=== PATIENT | female | born 1960 | race Caucasian/White ===

== ENCOUNTER 2020-01-11 19:58 | Outpatient (CLI) | payer OTHER | END 2020-01-11 19:59 | disposition EMS.NT | LOC: EMS 19:58 | PROVIDERS: ATTEND Surgery | DX: R20.8 Other disturbances of skin sensation (principal) ==

== ENCOUNTER 2020-01-13 21:45 | Inpatient (IN) | payer OTHER ==
[2020-01-13 22:10] LABS: BASOPHILS # (AUTO) 0.1 10^3/uL (0.0-0.1); BASOPHILS % (AUTO) 0.3 %; EOSINOPHILS # (AUTO) 0.1 10^3/uL (0.0-0.7); EOSINOPHILS % (AUTO) 0.6 %; HGB - HEMOGLOBIN 12.9 g/dL (12.0-16.0); LYMPHOCYTES # (AUTO) 1.2 10^3/uL (1.5-3.5); MEAN CORPUSCULAR HGB CONC 33.2 g/dL (32.0-36.0); MEAN CORPUSCULAR VOLUME 90.5 fL (81.0-99.0); MEAN PLATELET VOLUME 9.5 fL (7.9-10.8); MONOCYTES # (AUTO) 1.3 10^3/uL (0.0-1.0); MONOCYTES % (AUTO) 6.6 %; NEUTROPHILS # (AUTO) 16.5 10^3/uL (1.5-6.6); NEUTROPHILS % (AUTO) 85.1 %; PLT - PLATELET COUNT 240 10^3/uL (130-450); RED CELL DISTRIBUTION WIDTH 12.9 % (12.0-15.0); WHITE BLOOD COUNT 19.4 x10^3/uL (4.8-10.8)
[2020-01-13 22:19] LABS: GLUCOSE, URINE (UA) NEGATIVE (NEGATIVE); KETONES,URINE (UA) 40 mg/dL (NEGATIVE); LEUKOCYTE ESTERASE, URINE SMALL (NEGATIVE); NITRITE,URINE POSITIVE (NEGATIVE); OCCULT BLOOD,URINE SMALL (NEGATIVE); PROTEIN,URINE 30 mg/dL (NEGATIVE); UROBILINOGEN,URINE 0.2 (NORMAL) E.U./dL (NORMAL)
[2020-01-13 22:21] LABS: ALBUMIN 4.8 g/dL (3.2-5.5); ALBUMIN/GLOBULIN RATIO 1.5 (1.0-2.2); CALCIUM 9.4 mg/dL (8.5-10.3); CREATININE 0.6 mg/dL (0.4-1.0); TOTAL PROTEIN 8.1 g/dL (6.7-8.2)
[2020-01-13 22:26] LABS: BACTERIA,URINE Moderate /HPF (None Seen); BILIRUBIN,URINE NEGATIVE (NEGATIVE); CASTS, URINE 0-2 Hyaline Casts /LPF; CLARITY,URINE HAZY (CLEAR); ICTOTEST,URINE NEGATIVE; RBC,URINE 0-5 /HPF (0-5); SQUAMOUS EPITHELIAL CELL,UR RARE Squamous (<= Few)
--- NOTE | 2020-01-13 22:27 | ED Physician Documentation ---
History of Present Illness - Stated complaint Stated Complaint: ABD PAIN,CHILLS - Chief complaint Chief Complaint: Abd Pain - Additonal information Additional information: This is a 59-year-old female who presents with several days of lower abdominal pain and chills. She states that the pain is across her lower abdomen more in the center, radiates somewhat upwards on the bilateral sides. This is been increasing since yesterday. She has had some chills, she has not measured her temperature at home. She feels dehydrated. No diarrhea, she has been nauseated and has reduced food intake, not able to eat anything substantial today. She denies dysuria, denies abnormal vaginal discharge. Review of Systems Constitutional: reports: Chills Cardiac: denies: Chest pain / pressure Respiratory: denies: Dyspnea, Cough GI: reports: Abdominal Pain, Nausea : denies: Dysuria Skin: denies: Rash Musculoskeletal: denies: Neck pain Endocrine: denies: Polyuria Immunocompromised: denies: Immunocompromised PD PAST MEDICAL HISTORY - Past Medical History Past Medical History: No - Present Medications Home Medications: Ambulatory Orders Medication Instructions Recorded Confirmed No Known Home Medications 01/14/20 01/14/20 - Allergies Allergies/Adverse Reactions: Allergies Allergy/AdvReac Type Severity Reaction Status Date / Time No Known Drug Allergies Allergy Verified 01/13/20 21:49 - Social History Does the pt smoke?: No PD ED PE NORMAL - Vitals Vital signs reviewed: Yes - General General: Alert and oriented X 3, No acute distress - HEENT HEENT: PERRL - Neck Neck: Supple, no meningeal sign - Cardiac Cardiac: RRR, No murmur - Respiratory Respiratory: Clear bilaterally - Abdomen Abdomen: Other (Abdomen soft, there is moderate to severe tenderness in the bilateral lower quadrants and a suprapubic region. There is no upper abdominal tenderness to palpation. No guarding.) - Derm Derm: Warm and dry - Extremities Extremities: No deformity - Neuro Neuro: Alert and oriented X 3 - Psych Psych: Normal mood, Normal affect Results - Vitals Vitals: Vital Signs - 24 hr 01/14/20 01/14/20 01/14/20 06:34 08:00 08:18 Temperature 36.3 C L 37.5 C 36.3 C L Heart Rate 100 Heart Rate [ 94 Brachial] Respiratory 20 22 Rate Blood Pressure 100/61 [Left Brachial artery] Blood Pressure [Right Brachial artery] O2 Saturation 92 100 01/14/20 01/14/20 01/14/20 10:15 12:33 13:19 Temperature 37.7 C H 37.0 C 37.4 C Heart Rate Heart Rate [ 96 103 H 95 Brachial] Respiratory 18 20 20 Rate Blood Pressure 104/62 111/68 105/64 [Left Brachial artery] Blood Pressure [Right Brachial artery] O2 Saturation 94 92 95 01/14/20 01/14/20 14:34 15:56 Temperature 37.7 C H 37.4 C Heart Rate Heart Rate [ 97 88 Brachial] Respiratory 18 20 Rate Blood Pressure 101/59 L [Left Brachial artery] Blood Pressure 95/58 L [Right Brachial artery] O2 Saturation 92 93 Oxygen O2 Source Room air - Labs Labs: Microbiology 01/13/20 22:09 Urine Culture - Preliminary Urine,Clean Catch CULTURE IN PROGRESS. RESULTS TO FOLLOW. Laboratory Tests 01/13/20 01/13/20 01/13/20 22:02 22:02 22:09 WBC 19.4 H RBC 4.30 Hgb 12.9 Hct 38.9 MCV 90.5 MCH 30.0 MCHC 33.2 RDW 12.9 Plt Count 240 MPV 9.5 Neut # (Auto) 16.5 H Lymph # (Auto) 1.2 L [place] # (Auto) 1.3 H Eos # (Auto) 0.1 Baso # (Auto) 0.1 Absolute Nucleated RBC 0.00 Total Counted Band Neuts % (Manual) Abnorm Lymph % (Manual) Nucleated RBC % 0.0 Neutrophils # (Manual) Lymphocytes # (Manual) Monocytes # (Manual) Eosinophils # (Manual) Basophils # (Manual) Differential Comment Platelet Estimate RBC Morph Micro Appear PT INR Sodium 134 L Potassium 3.3 L Chloride 98 L Carbon Dioxide 24 Anion Gap 12.0 BUN 15 Creatinine 0.6 Estimated GFR (MDRD) 102 Glucose 127 H POC Whole Bld Glucose Glycated Hemoglobin Estim Average Glucose Lactic Acid Calcium 9.4 Total Bilirubin 2.0 H AST 18 ALT 21 Alkaline Phosphatase 57 Total Protein 8.1 Albumin 4.8 Globulin 3.3 Albumin/Globulin Ratio 1.5 Lipase 21 L CA 125 Antigen Urine Color YELLOW Urine Clarity HAZY Urine pH 6.0 Ur Specific [place] 1.025 Urine Protein 30 H Urine Glucose (UA) NEGATIVE Urine Ketones 40 H Urine Occult Blood SMALL H Urine Nitrite POSITIVE H Urine Bilirubin NEGATIVE Urine Urobilinogen 0.2 (NORMAL) Ur Leukocyte Esterase SMALL H Urine RBC 0-5 Urine WBC 11-25 H Ur Squamous Epith Cells RARE Squamous Urine Bacteria Moderate H Urine Casts 0-2 Hyaline Casts Ur Microscopic Review INDICATED Urine Culture Comments INDICATED Blood Type Recheck 01/13/20 01/14/20 01/14/20 23:04 04:25 04:25 WBC 11.1 H RBC 3.83 L Hgb 11.3 L Hct 35.1 L MCV 91.6 MCH 29.5 MCHC 32.2 RDW 13.2 Plt Count 190 MPV 10.0 Neut # (Auto) Not Reportable Lymph # (Auto) Not Reportable [place] # (Auto) Not Reportable Eos # (Auto) Not Reportable Baso # (Auto) Not Reportable Absolute Nucleated RBC Not Reportable Total Counted 100 Band Neuts % (Manual) 7 Abnorm Lymph % (Manual) 0 Nucleated RBC % Not Reportable Neutrophils # (Manual) 10.1 H Lymphocytes # (Manual) 0.6 L Monocytes # (Manual) 0.4 Eosinophils # (Manual) 0.0 Basophils # (Manual) 0.0 Differential Comment MANUAL DIFFERENTIAL Platelet Estimate NORMAL (130-450,000) RBC Morph Micro Appear NORMAL APPEARANCE PT INR Sodium 135 Potassium 3.3 L Chloride 104 Carbon Dioxide 23 Anion Gap 8.0 BUN 11 Creatinine 0.5 Estimated GFR (MDRD) 126 Glucose 120 H POC Whole Bld Glucose Glycated Hemoglobin Estim Average Glucose Lactic Acid 0.6 Calcium 8.2 L Total Bilirubin AST ALT Alkaline Phosphatase Total Protein Albumin Globulin Albumin/Globulin Ratio Lipase CA 125 Antigen Urine Color Urine Clarity Urine pH Ur Specific [place] Urine Protein Urine Glucose (UA) Urine Ketones Urine Occult Blood Urine Nitrite Urine Bilirubin Urine Urobilinogen Ur Leukocyte Esterase Urine RBC Urine WBC Ur Squamous Epith Cells Urine Bacteria Urine Casts Ur Microscopic Review Urine Culture Comments Blood Type Recheck 01/14/20 01/14/20 01/14/20 04:25 04:25 08:30 WBC RBC Hgb Hct MCV MCH MCHC RDW Plt Count MPV Neut # (Auto) Lymph # (Auto) [place] # (Auto) Eos # (Auto) Baso # (Auto) Absolute Nucleated RBC Total Counted Band Neuts % (Manual) Abnorm Lymph % (Manual) Nucleated RBC % Neutrophils # (Manual) Lymphocytes # (Manual) Monocytes # (Manual) Eosinophils # (Manual) Basophils # (Manual) Differential Comment Platelet Estimate RBC Morph Micro Appear PT INR Sodium Potassium Chloride Carbon Dioxide Anion Gap BUN Creatinine Estimated GFR (MDRD) Glucose POC Whole Bld Glucose Glycated Hemoglobin 5.5 Estim Average Glucose 111 H Lactic Acid Calcium Total Bilirubin AST ALT Alkaline Phosphatase Total Protein Albumin Globulin Albumin/Globulin Ratio Lipase CA 125 Antigen 19.3 Urine Color Urine Clarity Urine pH Ur Specific [place] Urine Protein Urine Glucose (UA) Urine Ketones Urine Occult Blood Urine Nitrite Urine Bilirubin Urine Urobilinogen Ur Leukocyte Esterase Urine RBC Urine WBC Ur Squamous Epith Cells Urine Bacteria Urine Casts Ur Microscopic Review Urine Culture Comments Blood Type Recheck A POSITIVE 01/14/20 01/14/20 01/14/20 08:30 11:10 17:45 WBC RBC Hgb Hct MCV MCH MCHC RDW Plt Count MPV Neut # (Auto) Lymph # (Auto) [place] # (Auto) Eos # (Auto) Baso # (Auto) Absolute Nucleated RBC Total Counted Band Neuts % (Manual) Abnorm Lymph % (Manual) Nucleated RBC % Neutrophils # (Manual) Lymphocytes # (Manual) Monocytes # (Manual) Eosinophils # (Manual) Basophils # (Manual) Differential Comment Platelet Estimate RBC Morph Micro Appear PT 19.1 H INR 1.7 H Sodium Potassium Chloride Carbon Dioxide Anion Gap BUN Creatinine Estimated GFR (MDRD) Glucose POC Whole Bld Glucose 102 H Glycated Hemoglobin Estim Average Glucose Lactic Acid 0.8 Calcium Total Bilirubin AST ALT Alkaline Phosphatase Total Protein Albumin Globulin Albumin/Globulin Ratio Lipase CA 125 Antigen Urine Color Urine Clarity Urine pH Ur Specific [place] Urine Protein Urine Glucose (UA) Urine Ketones Urine Occult Blood Urine Nitrite Urine Bilirubin Urine Urobilinogen Ur Leukocyte Esterase Urine RBC Urine WBC Ur Squamous Epith Cells Urine Bacteria Urine Casts Ur Microscopic Review Urine Culture Comments Blood Type Recheck - Rads (name of study) CT abd/pelvis Radiology: Other (Severe diverticulitis, without free air or abscess. There is adjacent small bowel with likely ileus. 7 cm right ovarian cyst, warrants follow-up ultrasound.) PD MEDICAL DECISION MAKING - ED course Complexity details: considered differential (Cystitis, pyelonephritis, diverticulitis, perforation, enteritis, gastroenteritis.) ED course: On arrival patient is tachycardic, afebrile, she is focally tender in her lower abdomen. Labs reveal leukocytosis of 19.4. Her urine does show signs of infection, however given her greater than expected tenderness, which is more lateral than expected for simple cystitis, and elevated white count, CT scan was obtained that showed severe diverticulitis without abscess or perforation. She required multiple doses of pain medications, antiemetics. She was also given IV fluids. She initially was started on ceftriaxone when she was found to have signs of a urinary tract infection, this was broadened to Zosyn once we found that she also had diverticulitis. On repeat examination patient's vital signs have improved with her heart rate normalizing on my repeat exam, blood pressure stable, pt remains afebrile. Her lactate is normal, there are no signs of septic shock. Given her pain, her tenderness on exam, and her findings of severe diverticulitis and possible pyelonephritis, she was admitted to the hospital for observation, antibiotics, and further management. Dr. Tovar admitting. I updated patient on the plan of care and she is in agreement. Departure - Departure Disposition: ED Place in Observation Clinical Impression: Diverticulitis Urinary tract infection Qualifiers: Urinary tract infection type: acute cystitis Hematuria presence: without hematuria Qualified Code(s): N30.00 - Acute cystitis without hematuria Condition: Stable Discharge Date/Time: 01/14/20 01:19
[2020-01-13] MEDS ORDERED: cefTRIAXone 1 GM in SODIUM CHLORIDE 0.9% MINIBAG 100 ML IV STA (22:38)
[2020-01-13] MEDS ORDERED: MORPHINE 2 MG/ML CARPUJECT IVP STA (22:49)
[2020-01-13] MEDS ORDERED: LACTATED RINGERS 1,000 ML IV STA (22:49)
[2020-01-13] MEDS ORDERED: ONDANSETRON 4 MG/2 ML VIAL IVP STA (22:50)
[2020-01-13] MEDS ORDERED: IOVERSOL 320 100 ML VIAL IVP ONE (23:30)
[2020-01-13] MEDS: IOVERSOL 320 100 ML VIAL IVP ONE (23:30)
--- NOTE | 2020-01-13 23:51 | CT Report ---
Reason: Lower abdominal pain, fever Procedure Date: 01/13/2020 Accession Number: [id number] / [id number] Procedure: CT - Abdomen/Pelvis W CPT Code: Final Report FULL RESULT: EXAM: CT ABDOMEN AND PELVIS EXAM DATE: 01/13/2020 11:31 PM. CLINICAL HISTORY: Lower abdominal pain, fever. COMPARISONS: None. TECHNIQUE: Routine helical CT imaging was performed through the abdomen and pelvis. IV contrast: 100 cc OPTIRAY 320. Enteric contrast: No. Reconstructions: Coronal and sagittal. In accordance with CT protocol optimization, one or more of the following dose reduction techniques were utilized for this exam: automated exposure control, adjustment of mA and/or KV based on patient size, or use of iterative reconstructive technique. FINDINGS: ABDOMEN: Lung Bases: Incompletely included lower lungs demonstrate scattered atelectasis. Heart size is within normal limits. No basilar effusions. Liver: Diffuse steatosis. Spleen: Unremarkable. Pancreas: Unremarkable. Gallbladder/Bile Ducts: Gallbladder is unremarkable. Biliary tree is normal caliber. Adrenal Glands: Unremarkable. Kidneys: No mass, calculi, or hydronephrosis. Peritoneum/Mesentery/Bowel: No free fluid, free air, or collection. Severe sigmoid diverticulitis is present. There is inflammation of the adjacent small bowel. Mid to lower small bowel is mildly dilated with air-fluid levels. The appendix is within normal limits. Lymph nodes: No mesenteric, periportal, or retroperitoneal lymphadenopathy. Vasculature: Abdominal aorta is nonaneurysmal. Portal vein is patent. Hepatic veins are patent. PELVIS: The bladder is unremarkable for the degree of distention. 7 cm right ovarian cyst measuring simple fluid density. No pelvic lymphadenopathy. Bones: No suspicious osseous lesions. IMPRESSION: Severe sigmoid diverticulitis. No free air. No abscess. The adjacent small bowel is also severely inflamed with associated likely ileus. Follow-up imaging once clinical symptomatology resolves is recommended to ensure complete resolution. 7 cm right ovarian postmenopausal cyst. Follow-up ultrasound is recommended beginning in 3 months, as neoplasm cannot be excluded. Diffuse hepatic steatosis. RADIA
[2020-01-14] MEDS ORDERED: LACTATED RINGERS 1,000 ML IV ONE (00:13)
[2020-01-14] MEDS ORDERED: MORPHINE 2 MG/ML CARPUJECT IVP STA (00:20)
[2020-01-14] MEDS ORDERED: PIPERACILLIN/TAZOBACTAM 4.5 GM in SODIUM CHLORIDE 0.9% MINIBAG 100 ML IV STA (00:20)
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
[2020-01-14] MEDS ORDERED: POTASSIUM CHLORIDE 20 MEQ TABLET PO STA (00:39)
[2020-01-14] MEDS: SODIUM CHLORIDE 0.9% 1,000 ML IV SCH ×2 (01:44→11:24)
[2020-01-14] MEDS: SODIUM CHLORIDE FLUSH 0.9% 10 ML SYRINGE IVP SCH ×3 (01:44→16:57)
[2020-01-14] MEDS: oxyCODONE 5 MG TABLET PO PRN ×3 (01:44→13:29)
[2020-01-14] MEDS: MORPHINE 2 MG/ML CARPUJECT IVP PRN ×5 (02:38→18:04)
[2020-01-14] MEDS: ACETAMINOPHEN 325 MG TABLET PO PRN ×3 (04:56→14:39)
[2020-01-14 05:11] LABS: BASOPHILS % (AUTO) 0.2 %; HGB - HEMOGLOBIN 11.3 g/dL (12.0-16.0); MEAN CORPUSCULAR HEMOGLOBIN 29.5 pg (27.0-31.0); MEAN CORPUSCULAR HGB CONC 32.2 g/dL (32.0-36.0); MEAN CORPUSCULAR VOLUME 91.6 fL (81.0-99.0); MONOCYTES % (AUTO) 5.1 %; NEUTROPHILS % (AUTO) 88.2 %; PLT - PLATELET COUNT 190 10^3/uL (130-450); RED BLOOD COUNT 3.83 10^6/uL (4.20-5.40); RED CELL DISTRIBUTION WIDTH 13.2 % (12.0-15.0); WHITE BLOOD COUNT 11.1 x10^3/uL (4.8-10.8)
[2020-01-14 05:14] LABS: CALCIUM 8.2 mg/dL (8.5-10.3); CREATININE 0.5 mg/dL (0.4-1.0)
[2020-01-14 05:23] LABS: ABNORMAL LYMPHS % (MANUAL) 0 %
[2020-01-14] MEDS: PIPERACILLIN/TAZOBACTAM 3.375 GM in SODIUM CHLORIDE 0.9% MINIBAG 100 ML IV SCH ×3 (05:32→17:55)
[2020-01-14 05:41] LABS: HB2 TOTAL 11.9 g/dL; HEMOGLOBIN A1C 0.44 g/dL; HEMOGLOBIN A1C % 5.5 % (4.6-6.2)
[2020-01-14 06:02] LABS: BAND NEUTROPHILS % (MANUAL) 7 %; DIFFERENTIAL COMMENT MANUAL DIFFERENTIAL; LYMPHOCYTES # (MANUAL) 0.6 10^3/uL (1.5-3.5); LYMPHOCYTES % (MANUAL) 5 %; MONOCYTES # (MANUAL) 0.4 10^3/uL (0.0-1.0); PLATELET ESTIMATE, MANUAL NORMAL (130-450,000) (NORMAL); RBC MORPHOLOGY (MULTIPLE) NORMAL APPEARANCE (NORMAL)
[2020-01-14] MEDS ORDERED: POTASSIUM CHLORIDE 20 MEQ TABLET PO SCH (08:03)
--- NOTE | 2020-01-14 12:04 | PHARMACY PROGRESS NOTE ---
- Best Possible Medication History Admit Date and Time: 01/14/20 0019 Processed by: Pharmacy Medication History completed: Yes Patient Interview: Pt interview ONLY source As the person ultimately responsible for medication therapy, providers are able to order a medication from an existing home medication list in [facility] via the "Reconcile Routine" prior to Confirmation of that medication by support team member. Such practice is discouraged except when the physician, in their clinical judgment, deems that a medical need exists for a medication without regard to previous use.
[2020-01-14] MEDS: ONDANSETRON 4 MG/2 ML VIAL IVP PRN (13:29)
[2020-01-14] MEDS ORDERED: IOVERSOL 320 100 ML VIAL IVP ONE (15:51)
[2020-01-14] MEDS: IOVERSOL 320 100 ML VIAL IVP ONE (16:46)
--- NOTE | 2020-01-14 17:39 | CT Report ---
Reason: worsen abd pain from severe diverticulitis,perfor? Procedure Date: 01/14/2020 Accession Number: [id number] / [id number] Procedure: CT - Abdomen/Pelvis W CPT Code: Final Report FULL RESULT: EXAM: CT ABDOMEN AND PELVIS EXAM DATE: 01/14/2020 04:18 PM. CLINICAL HISTORY: Worsening abdominal pain. COMPARISONS: ABDOMEN/PELVIS W/ 01/13/2020 11:16 PM. TECHNIQUE: Routine helical CT imaging was performed through the abdomen and pelvis. IV contrast: 100 mL Optiray 320. Enteric contrast: No. Reconstructions: Coronal and sagittal. In accordance with CT protocol optimization, one or more of the following dose reduction techniques were utilized for this exam: automated exposure control, adjustment of mA and/or KV based on patient size, or use of iterative reconstructive technique. FINDINGS: Lung Bases: Clear. Liver: Diffuse low attenuation of the hepatic parenchyma with respect to the spleen, indicating steatosis. No focal hepatic lesion. Gallbladder/Bile Ducts: Unremarkable. No visualized stones or biliary ductal dilatation. Spleen: Normal. Pancreas: Normal. Adrenal Glands: Normal. Kidneys and Ureters: Stable 0.5 cm circumscribed hypoattenuating focus in the medial right upper pole cortex likely represents a cyst (40). No stones, hydronephrosis, or hydroureter. Peritoneal Cavity/Bowel: Ongoing focal thickening of the proximal/mid sigmoid colon wall with adjacent inflammatory fat stranding centered around an inflamed diverticulum (03/12), compatible with acute diverticulitis. New fluid and gas collection adjacent to the inflamed diverticulum measuring approximately 4.2 x 2.0 x 2.1 cm (72). Multiple dilated fluid-filled loops of small bowel with transition to decompressed bowel at thick-walled loops surrounding the developing abscess in the anterior pelvis (03/08). Scattered small volume free fluid in the lower abdominal small bowel mesentery and pelvis. The appendix is normal. Pelvic Organs: 7.7 x 6.4 x 6.8 cm simple appearing right adnexal cyst (, 5/47). Multiple myomata at the uterine fundus, the largest a posterior subserosal myoma measuring 3.3 x 2.0 x 3.2 cm (, 5). The bladder is partially decompressed. Vasculature: Trace atherosclerotic calcification in the proximal right common iliac artery. Bones: Mild left convex curvature centered at L2-L3. No acute bony abnormality. Other: None. IMPRESSION: 1. Acute mid sigmoid colon diverticulitis with microperforation versus early perforation. Small fluid and gas collection adjacent to the inflamed mid sigmoid colon diverticulum and surrounded by small bowel loops in the anterior pelvis, compatible with developing abscess. 2. Small bowel obstruction with transition point at thick-walled loops of bowel surrounding the developing abscess in the anterior pelvis. 3. 7.7 cm simple appearing right adnexal cyst. Follow-up ultrasound recommended in 6-12 months per ACR white paper. [facility]IA The critical result notification system was initiated by Dr. Caro Ochoa at 05:26 PM on 01/14/2020. The above critical result findings were discussed with Li by Dr. Caro Ochoa at 05:34 PM on 01/14/2020.
[2020-01-14 18:01] LABS: INR 1.7 (0.8-1.2); PT - PROTHROMBIN TIME 19.1 secs (9.9-12.6)
[2020-01-14] MEDS: SODIUM CHLORIDE FLUSH 0.9% 10 ML SYRINGE IVP PRN ×2 (18:05→18:29)
--- NOTE | 2020-01-14 18:06 | PROVIDER PROGRESS NOTE ---
Hospitalist Cross-cover Note - Cross-Cover Note Cross-Cover Note: pt report her abdominal is worsening, plus immediately vomit after PO fluid. In examination, pt present mild tenderness and rebound pain. Stat CT of abdomen was ordered. Radiologist called me new CT reveals microperforation versus early perforation, developing abscess, small bowel obstruction with transition point at thick-walled loops of bowel surrounding the developing abscess in the anterior pelvis. I called surgeon Dr. Thurston immediately. Dr. Thurston come to assess pt. pt did not eat her clear liquid diet. I order EKG and ECHO as well, order PT/INR, change to NPO. pt denies cardiac hx, she report she had surgery recently. she passed the cardiac evaluation for her surgery also. I reported all these informations to Dr. Thurston. Dr. Thurston asked to add Flagyl for pt, so I added.
[2020-01-14] MEDS: PROCHLORPERAZINE 10 MG/2 ML VIAL IVP PRN (18:29)
[2020-01-14] MEDS: metroNIDAZOLE 500 MG/100 ML 500 MG/100 ML BAG IV SCH (18:52)
[2020-01-14] MEDS ORDERED: CIPROFLOXACIN 400 MG/200 ML 200 ML IV SCH (20:00)
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
[2020-01-14] MEDS: levoFLOXacin 750 MG/150 ML 750 MG/150 ML BAG IV SCH (20:13)
[2020-01-14] MEDS: HYDROmorphone PCA 20MG/100ML IV PRN (21:11)
[2020-01-15] MEDS: SODIUM CHLORIDE 0.9% 1,000 ML IV SCH ×2 (01:48→06:59)
[2020-01-15] MEDS: SODIUM CHLORIDE FLUSH 0.9% 10 ML SYRINGE IVP SCH ×3 (01:50→17:14)
[2020-01-15] MEDS: PROCHLORPERAZINE 10 MG/2 ML VIAL IVP PRN (04:06)
[2020-01-15] MEDS: metroNIDAZOLE 500 MG/100 ML 500 MG/100 ML BAG IV SCH ×3 (04:13→21:47)
[2020-01-15 05:24] LABS: BASOPHILS % (AUTO) 0.2 %; EOSINOPHILS % (AUTO) 0.2 %; HGB - HEMOGLOBIN 9.7 g/dL (12.0-16.0); LYMPHOCYTES # (AUTO) 0.8 10^3/uL (1.5-3.5); LYMPHOCYTES % (AUTO) 8.7 %; MEAN CORPUSCULAR HEMOGLOBIN 28.8 pg (27.0-31.0); MEAN CORPUSCULAR HGB CONC 31.4 g/dL (32.0-36.0); MEAN CORPUSCULAR VOLUME 91.7 fL (81.0-99.0); MONOCYTES # (AUTO) 0.8 10^3/uL (0.0-1.0); MONOCYTES % (AUTO) 8.4 %; NEUTROPHILS # (AUTO) 7.7 10^3/uL (1.5-6.6); PLT - PLATELET COUNT 188 10^3/uL (130-450); RED BLOOD COUNT 3.37 10^6/uL (4.20-5.40); RED CELL DISTRIBUTION WIDTH 13.1 % (12.0-15.0); WHITE BLOOD COUNT 9.4 x10^3/uL (4.8-10.8)
[2020-01-15 05:42] LABS: ALBUMIN/GLOBULIN RATIO 1.1 (1.0-2.2); CALCIUM 8.4 mg/dL (8.5-10.3); CREATININE 0.5 mg/dL (0.4-1.0); MAGNESIUM 1.9 mg/dL (1.7-2.8); TOTAL PROTEIN 5.8 g/dL (6.7-8.2)
[2020-01-15] MEDS: DEXTROSE 5%-0.9% NACL 1,000 ML IV SCH ×2 (08:56→19:48)
[2020-01-15] MEDS ORDERED: BISACODYL 10 MG SUPP PR PRN (09:00)
[2020-01-15] MEDS ORDERED: LACTOBACILLUS RHAMNOSUS GG CAPSULE PO SCH (09:00)
--- NOTE | 2020-01-15 10:32 | PROVIDER PROGRESS NOTE ---
Subjective - Prog Note Date Prog Note Date: 01/15/20 Prog Note Time: 07:30 - Subjective Pt reports feeling: Improved (Patient reports her pain is much better undercontrol with the WIRE COINER and she feels better than she did last pm, no gas, some bleching able to ambulated without issues) Objective - Vital Signs/Intake & Output Vital Signs: Vital Signs x48h Temp Pulse Resp BP Pulse Ox 01/15/20 08:15 36.4 C L 92 20 110/65 91 L 01/15/20 06:56 16 01/15/20 04:12 37.1 C 82 18 103/51 L 98 01/15/20 04:00 16 Intake & Output: Intake & Output 01/12/20 01/13/20 01/14/20 01/15/20 23:59 23:59 23:59 23:59 Intake Total 100 5828.334 1034.666 Output Total 950 250 Balance 100 4878.334 784.666 - Objective General Appearance: positive: No acute distress Eyes Bilateral: positive: Normal inspection Respiratory: positive: No respiratory distress, Breath sounds nml Cardiovascular: positive: Regular rate & rhythm Abdomen: positive: Tenderness (LLQ tenderness is slightly improved on exam, no peritoneal signs no R/G/R BS are minimal) Extremities: positive: Non-tender, Full ROM, Nml appearance Neurologic/Psychiatric: positive: Oriented x3 - Lab Results Fish Bones: 01/15/20 04:50 01/15/20 04:50 Other Labs: Lab Results x24hrs 01/15/20 01/15/20 01/14/20 Range/Units 04:50 04:50 21:19 WBC 9.4 (4.8-10.8) x10^3/uL RBC 3.37 L (4.20-5.40) 10^6/uL Hgb 9.7 L (12.0-16.0) g/dL Hct 30.9 L (37.0-47.0) % MCV 91.7 (81.0-99.0) fL MCH 28.8 (27.0-31.0) pg MCHC 31.4 L (32.0-36.0) g/dL RDW 13.1 (12.0-15.0) % Plt Count 188 (130-450) 10^3/uL MPV 10.0 (7.9-10.8) fL Neut # (Auto) 7.7 H (1.5-6.6) 10^3/uL Lymph # (Auto) 0.8 L (1.5-3.5) 10^3/uL Antelope # (Auto) 0.8 (0.0-1.0) 10^3/uL Eos # (Auto) 0.0 (0.0-0.7) 10^3/uL Baso # (Auto) 0.0 (0.0-0.1) 10^3/uL Absolute Nucleated RBC 0.00 x10^3/uL Nucleated RBC % 0.0 /100WBC PT (9.9-12.6) secs INR (0.8-1.2) Sodium 133 L (135-145) mmol/L Potassium 3.8 (3.5-5.0) mmol/L Chloride 104 (101-111) mmol/L Carbon Dioxide 21 (21-32) mmol/L Anion Gap 8.0 (6-13) BUN 16 (6-20) mg/dL Creatinine 0.5 (0.4-1.0) mg/dL Estimated GFR (MDRD) 126 (>89) Glucose 94 (70-100) mg/dL POC Whole Bld Glucose (70 - 100) mg/dL Calcium 8.4 L (8.5-10.3) mg/dL Magnesium 1.9 (1.7-2.8) mg/dL Total Bilirubin 1.0 (0.2-1.0) mg/dL AST 11 (10-42) IU/L ALT 14 (10-60) IU/L Alkaline Phosphatase 43 (42-121) IU/L Total Protein 5.8 L (6.7-8.2) g/dL Albumin 3.0 L (3.2-5.5) g/dL Globulin 2.8 (2.1-4.2) g/dL Albumin/Globulin Ratio 1.1 (1.0-2.2) Blood Type A POSITIVE Blood Type Recheck Antibody Screen NEGATIVE 01/14/20 01/14/20 01/14/20 Range/Units 17:45 11:10 04:25 WBC (4.8-10.8) x10^3/uL RBC (4.20-5.40) 10^6/uL Hgb (12.0-16.0) g/dL Hct (37.0-47.0) % MCV (81.0-99.0) fL MCH (27.0-31.0) pg MCHC (32.0-36.0) g/dL RDW (12.0-15.0) % Plt Count (130-450) 10^3/uL MPV (7.9-10.8) fL Neut # (Auto) (1.5-6.6) 10^3/uL Lymph # (Auto) (1.5-3.5) 10^3/uL Antelope # (Auto) (0.0-1.0) 10^3/uL Eos # (Auto) (0.0-0.7) 10^3/uL Baso # (Auto) (0.0-0.1) 10^3/uL Absolute Nucleated RBC x10^3/uL Nucleated RBC % /100WBC PT 19.1 H (9.9-12.6) secs INR 1.7 H (0.8-1.2) Sodium (135-145) mmol/L Potassium (3.5-5.0) mmol/L Chloride (101-111) mmol/L Carbon Dioxide (21-32) mmol/L Anion Gap (6-13) BUN (6-20) mg/dL Creatinine (0.4-1.0) mg/dL Estimated GFR (MDRD) (>89) Glucose (70-100) mg/dL POC Whole Bld Glucose 102 H (70 - 100) mg/dL Calcium (8.5-10.3) mg/dL Magnesium (1.7-2.8) mg/dL Total Bilirubin (0.2-1.0) mg/dL AST (10-42) IU/L ALT (10-60) IU/L Alkaline Phosphatase (42-121) IU/L Total Protein (6.7-8.2) g/dL Albumin (3.2-5.5) g/dL Globulin (2.1-4.2) g/dL Albumin/Globulin Ratio (1.0-2.2) Blood Type Blood Type Recheck A POSITIVE Antibody Screen Sepsis Event Note (H) - Sepsis Criteria Sepsis Criteria: Recorded Heart Rate greater than 90 bpm, WBC count greater than 12,000 or less than 4000 Assessment/Plan - Problem List (1) Diverticulitis Impression: Recommend to continue current plan of care with IV abx, strict NPO, and bowel rest. Wait a minimum of 48 hours prior to considering starting any oral intake. She understands that we are progressing successfully so far but that could change at any time and we will be monitoring for abscess development as well. She was encouraged to get out of bed several times today and her questions were answered.
--- NOTE | 2020-01-15 14:17 | PROVIDER PROGRESS NOTE ---
Subjective - Prog Note Date Prog Note Date: 01/15/20 - Subjective Pt reports feeling: Improved Subjective: pt report her abdominal pain is much better controlled. she denies fever, chill, SOB, chest pain. she report she passed gas and a small bowel movement. Current Medications - Current Medications Current Medications: Active Medications Acetaminophen (Tylenol) 650 mg PO Q4HR PRN PRN Reason: Pain 1 to 4 Last Admin: 01/14/20 14:39 Dose: 650 mg Bisacodyl (Dulcolax Supp) 10 mg ID ONCE PRN PRN Reason: Bowel Protocol Stop: 01/21/20 08:59 Enoxaparin Sodium (Lovenox) 40 mg SUBQ DAILY JULIA Hydromorphone HCl (Dilaudid Mohs Surgeon/General Dermatologist 20mg/100ml) 0 mg IV PRN PRN; Protocol PRN Reason: PAIN Last Admin: 01/14/20 21:11 Dose: 0.2 mg Metronidazole (Flagyl 500 Mg/100 Ml) 500 mg in 100 mls @ 100 mls/hr IV Q8H [facility] Last Infusion: 01/15/20 05:13 Dose: Infused Levofloxacin (Levaquin 750 Mg/150 Ml) 750 mg in 150 mls @ 100 mls/hr IV Q24H [facility] Last Infusion: 01/14/20 21:43 Dose: Infused Dextrose/Sodium Chloride (D5ns) 1,000 mls @ 100 mls/hr IV .Q10H [facility] Last Admin: 01/15/20 08:56 Dose: 100 mls/hr Lactobacillus Rhamnosus (Culturelle) 1 cap PO DAILY [facility] Last Admin: 01/15/20 07:50 Dose: Not Given Ondansetron HCl (Zofran Inj) 4 mg IVP Q6HR PRN PRN Reason: Nausea / Vomiting Last Admin: 01/14/20 13:29 Dose: 4 mg Ondansetron HCl (Zofran Odt) 4 mg TL Q6HR PRN PRN Reason: Nausea / Vomiting Oxycodone HCl (Roxicodone) 5 mg PO Q4HR PRN PRN Reason: Pain 5 to 7 Last Admin: 01/14/20 13:29 Dose: 5 mg Prochlorperazine Edisylate (Compazine Inj) 10 mg IVP Q6HR PRN PRN Reason: Nausea / Vomiting Last Admin: 01/15/20 04:06 Dose: 10 mg Sodium Chloride (Normal Saline Flush 0.9%) 10 ml IVP PRN PRN PRN Reason: NEEDED PER PROVIDER ORDERS Last Admin: 01/14/20 18:29 Dose: 10 ml Sodium Chloride (Normal Saline Flush 0.9%) 10 ml IVP 0100,0900,1700 JULIA Last Admin: 01/15/20 08:39 Dose: Not Given No Known Home Medications 01/14/20 Objective - Vital Signs/Intake & Output Vital Signs: Vital Signs x48h Temp Pulse Resp BP Pulse Ox 01/15/20 13:47 36.5 C 88 18 110/57 L 93 01/15/20 08:15 36.4 C L 92 20 110/65 91 L 01/15/20 06:56 16 Intake & Output: Intake & Output 01/12/20 01/13/20 01/14/20 01/15/20 23:59 23:59 23:59 23:59 Intake Total 100 5828.334 1034.666 Output Total 950 250 Balance 100 4878.334 784.666 - Objective General Appearance: positive: No acute distress, Alert. negative: Lethargic Eyes Bilateral: positive: Normal inspection, PERRL, No lid inflammation ENT: positive: ENT inspection nml, Pharynx nml, No signs of dehydration. negative: Purulent nasal drainage Neck: positive: Nml inspection, Thyroid nml, No JVD, Trachea midline. negative: Thyromegaly, Lymphadenopathy (R), Lymphadenopathy (L), Stiff neck, Tracheal deviation Respiratory: positive: Chest non-tender, No respiratory distress, Breath sounds nml. negative: Wheezes, Rales, Rhonchi Cardiovascular: positive: Regular rate & rhythm, No murmur, No gallop. negative: Irregularly irregular, Extrasystoles, Tachycardia, Bradycardia, JVD present, Systolic murmur, Diastolic murmur Peripheral Pulses: 2+ Radial (R), 2+ Radial (L), 2+ Dorsalis pedis (R), 2+ Dorsalis pedis (L) Abdomen: positive: Non-tender, No organomegaly, Nml bowel sounds, No distention. negative: Tenderness, Guarding, Rebound Back: positive: Nml inspection. negative: CVA tenderness (R), CVA tenderness (L) Skin: positive: Color nml, No rash, Warm, Dry. negative: Cyanosis, Diaphoresis, Pallor Extremities: positive: Non-tender, Full ROM, Nml appearance. negative: Calf tenderness, Adolfo's sign/cords Neurologic/Psychiatric: positive: Oriented x3, Motor nml, Sensation nml, Mood/affect nml. negative: Weakness, Sensory loss, Facial droop, Slurred/abnml speech, Depressed mood/affect - Lab Results Fish Bones: 01/15/20 04:50 01/15/20 04:50 Other Labs: Lab Results x24hrs 01/15/20 01/15/20 01/14/20 Range/Units 04:50 04:50 21:19 WBC 9.4 (4.8-10.8) x10^3/uL RBC 3.37 L (4.20-5.40) 10^6/uL Hgb 9.7 L (12.0-16.0) g/dL Hct 30.9 L (37.0-47.0) % MCV 91.7 (81.0-99.0) fL MCH 28.8 (27.0-31.0) pg MCHC 31.4 L (32.0-36.0) g/dL RDW 13.1 (12.0-15.0) % Plt Count 188 (130-450) 10^3/uL MPV 10.0 (7.9-10.8) fL Neut # (Auto) 7.7 H (1.5-6.6) 10^3/uL Lymph # (Auto) 0.8 L (1.5-3.5) 10^3/uL Gage # (Auto) 0.8 (0.0-1.0) 10^3/uL Eos # (Auto) 0.0 (0.0-0.7) 10^3/uL Baso # (Auto) 0.0 (0.0-0.1) 10^3/uL Absolute Nucleated RBC 0.00 x10^3/uL Nucleated RBC % 0.0 /100WBC PT (9.9-12.6) secs INR (0.8-1.2) Sodium 133 L (135-145) mmol/L Potassium 3.8 (3.5-5.0) mmol/L Chloride 104 (101-111) mmol/L Carbon Dioxide 21 (21-32) mmol/L Anion Gap 8.0 (6-13) BUN 16 (6-20) mg/dL Creatinine 0.5 (0.4-1.0) mg/dL Estimated GFR (MDRD) 126 (>89) Glucose 94 (70-100) mg/dL Calcium 8.4 L (8.5-10.3) mg/dL Magnesium 1.9 (1.7-2.8) mg/dL Total Bilirubin 1.0 (0.2-1.0) mg/dL AST 11 (10-42) IU/L ALT 14 (10-60) IU/L Alkaline Phosphatase 43 (42-121) IU/L Total Protein 5.8 L (6.7-8.2) g/dL Albumin 3.0 L (3.2-5.5) g/dL Globulin 2.8 (2.1-4.2) g/dL Albumin/Globulin Ratio 1.1 (1.0-2.2) Blood Type A POSITIVE Blood Type Recheck Antibody Screen NEGATIVE 01/14/20 01/14/20 Range/Units 17:45 04:25 WBC (4.8-10.8) x10^3/uL RBC (4.20-5.40) 10^6/uL Hgb (12.0-16.0) g/dL Hct (37.0-47.0) % MCV (81.0-99.0) fL MCH (27.0-31.0) pg MCHC (32.0-36.0) g/dL RDW (12.0-15.0) % Plt Count (130-450) 10^3/uL MPV (7.9-10.8) fL Neut # (Auto) (1.5-6.6) 10^3/uL Lymph # (Auto) (1.5-3.5) 10^3/uL Gage # (Auto) (0.0-1.0) 10^3/uL Eos # (Auto) (0.0-0.7) 10^3/uL Baso # (Auto) (0.0-0.1) 10^3/uL Absolute Nucleated RBC x10^3/uL Nucleated RBC % /100WBC PT 19.1 H (9.9-12.6) secs INR 1.7 H (0.8-1.2) Sodium (135-145) mmol/L Potassium (3.5-5.0) mmol/L Chloride (101-111) mmol/L Carbon Dioxide (21-32) mmol/L Anion Gap (6-13) BUN (6-20) mg/dL Creatinine (0.4-1.0) mg/dL Estimated GFR (MDRD) (>89) Glucose (70-100) mg/dL Calcium (8.5-10.3) mg/dL Magnesium (1.7-2.8) mg/dL Total Bilirubin (0.2-1.0) mg/dL AST (10-42) IU/L ALT (10-60) IU/L Alkaline Phosphatase (42-121) IU/L Total Protein (6.7-8.2) g/dL Albumin (3.2-5.5) g/dL Globulin (2.1-4.2) g/dL Albumin/Globulin Ratio (1.0-2.2) Blood Type Blood Type Recheck A POSITIVE Antibody Screen ABX Reporting Has patient been on IV antibiotics over the past 48 hours?: Yes Sepsis Event Note (H) - Sepsis Criteria Sepsis Criteria: Recorded Heart Rate greater than 90 bpm, WBC count greater than 12,000 or less than 4000 Assessment/Plan - Problem List (1) Diverticulitis Impression: 01/14 improved. pt report her abdominal pain is better controlled. pt was consulted with surgeon, will followup surgeon continue antibiotics, continue NPO, continue IVF of D5 lab monitor (2) Urinary tract infection UA analysis reveals Ecoli positive, continue antibiotics Levaquin. (3) Hypokalemia Conclusion/Plan: resolved (4) Hyperglycemia Conclusion/Plan: resolved. A1C is 5.5 (5) Ovarian cyst, right Conclusion/Plan: discussed with pt, pt understood the risk, advise pt closely followup her PCP, and make the appointment to see OBGYN. pt state she will.
--- NOTE | 2020-01-15 16:45 | PROVIDER PROGRESS NOTE ---
Subjective - General Admit Date: 01/14/20 - Review of Systems General: positive: No symptoms Gastrointestinal: positive: Abdominal pain (much improved even from this am. has passed gas and had a BM) All Other Systems: positive: Reviewed and negative Objective - Patient Data Vital Signs: Vital Signs x48h Temp Pulse Resp BP Pulse Ox 01/15/20 15:45 37.3 C 93 20 105/56 L 93 01/15/20 14:00 16 01/15/20 13:47 36.5 C 88 18 110/57 L 93 Weight: Weight 01/13/20 01/14/20 01/15/20 23:59 23:59 23:59 Weight (kg) 73.9 kg 75.5 kg Intake & Output: Intake and Output Totals x24h 01/13/20 01/14/20 01/15/20 23:59 23:59 23:59 Intake Total 100 5828.334 1034.666 Output Total 950 250 Balance 100 4878.334 784.666 - Lab Results Lab Results: 01/15/20 04:50 01/15/20 04:50 Other Lab Results: Lab Results x24hrs 01/15/20 01/15/20 01/14/20 Range/Units 04:50 04:50 21:19 WBC 9.4 (4.8-10.8) x10^3/uL RBC 3.37 L (4.20-5.40) 10^6/uL Hgb 9.7 L (12.0-16.0) g/dL Hct 30.9 L (37.0-47.0) % MCV 91.7 (81.0-99.0) fL MCH 28.8 (27.0-31.0) pg MCHC 31.4 L (32.0-36.0) g/dL RDW 13.1 (12.0-15.0) % Plt Count 188 (130-450) 10^3/uL MPV 10.0 (7.9-10.8) fL Neut # (Auto) 7.7 H (1.5-6.6) 10^3/uL Lymph # (Auto) 0.8 L (1.5-3.5) 10^3/uL [place] # (Auto) 0.8 (0.0-1.0) 10^3/uL Eos # (Auto) 0.0 (0.0-0.7) 10^3/uL Baso # (Auto) 0.0 (0.0-0.1) 10^3/uL Absolute Nucleated RBC 0.00 x10^3/uL Nucleated RBC % 0.0 /100WBC PT (9.9-12.6) secs INR (0.8-1.2) Sodium 133 L (135-145) mmol/L Potassium 3.8 (3.5-5.0) mmol/L Chloride 104 (101-111) mmol/L Carbon Dioxide 21 (21-32) mmol/L Anion Gap 8.0 (6-13) BUN 16 (6-20) mg/dL Creatinine 0.5 (0.4-1.0) mg/dL Estimated GFR (MDRD) 126 (>89) Glucose 94 (70-100) mg/dL Calcium 8.4 L (8.5-10.3) mg/dL Magnesium 1.9 (1.7-2.8) mg/dL Total Bilirubin 1.0 (0.2-1.0) mg/dL AST 11 (10-42) IU/L ALT 14 (10-60) IU/L Alkaline Phosphatase 43 (42-121) IU/L Total Protein 5.8 L (6.7-8.2) g/dL Albumin 3.0 L (3.2-5.5) g/dL Globulin 2.8 (2.1-4.2) g/dL Albumin/Globulin Ratio 1.1 (1.0-2.2) Blood Type A POSITIVE Blood Type Recheck Antibody Screen NEGATIVE 01/14/20 01/14/20 Range/Units 17:45 04:25 WBC (4.8-10.8) x10^3/uL RBC (4.20-5.40) 10^6/uL Hgb (12.0-16.0) g/dL Hct (37.0-47.0) % MCV (81.0-99.0) fL MCH (27.0-31.0) pg MCHC (32.0-36.0) g/dL RDW (12.0-15.0) % Plt Count (130-450) 10^3/uL MPV (7.9-10.8) fL Neut # (Auto) (1.5-6.6) 10^3/uL Lymph # (Auto) (1.5-3.5) 10^3/uL [place] # (Auto) (0.0-1.0) 10^3/uL Eos # (Auto) (0.0-0.7) 10^3/uL Baso # (Auto) (0.0-0.1) 10^3/uL Absolute Nucleated RBC x10^3/uL Nucleated RBC % /100WBC PT 19.1 H (9.9-12.6) secs INR 1.7 H (0.8-1.2) Sodium (135-145) mmol/L Potassium (3.5-5.0) mmol/L Chloride (101-111) mmol/L Carbon Dioxide (21-32) mmol/L Anion Gap (6-13) BUN (6-20) mg/dL Creatinine (0.4-1.0) mg/dL Estimated GFR (MDRD) (>89) Glucose (70-100) mg/dL Calcium (8.5-10.3) mg/dL Magnesium (1.7-2.8) mg/dL Total Bilirubin (0.2-1.0) mg/dL AST (10-42) IU/L ALT (10-60) IU/L Alkaline Phosphatase (42-121) IU/L Total Protein (6.7-8.2) g/dL Albumin (3.2-5.5) g/dL Globulin (2.1-4.2) g/dL Albumin/Globulin Ratio (1.0-2.2) Blood Type Blood Type Recheck A POSITIVE Antibody Screen - Current Medications Current Medications: Current Medications Generic Name Dose Route Start Last Admin Trade Name Freq PRN Reason Stop Dose Admin Acetaminophen 650 mg 01/14/20 00:19 01/14/20 14:39 Tylenol PO 650 mg Q4HR PRN Administration Pain 1 to 4 Hydromorphone HCl 0 mg 01/14/20 19:56 01/14/20 21:11 Dilaudid Preparatory Technician 20mg/100ml IV 0.2 mg PRN PRN Administration PAIN Protocol Metronidazole 500 mg in 100 mls @ 100 mls/hr 01/14/20 19:00 01/15/20 15:00 Flagyl 500 Mg/100 Ml IV 100 mls/hr Q8H JULIA Administration Levofloxacin 750 mg in 150 mls @ 100 mls/hr 01/14/20 20:00 01/14/20 21:43 Levaquin 750 Mg/150 Ml IV Infused Q24H [facility] Infusion Dextrose/Sodium Chloride 1,000 mls @ 100 mls/hr 01/15/20 08:00 01/15/20 08:56 D5ns IV 100 mls/hr .Q10H [facility] Administration Lactobacillus Rhamnosus 1 cap 01/15/20 09:00 01/15/20 07:50 Culturelle PO Not Given DAILY [facility] Ondansetron HCl 4 mg 01/14/20 00:19 01/14/20 13:29 Zofran Inj IVP 4 mg Q6HR PRN Administration Nausea / Vomiting Oxycodone HCl 5 mg 01/14/20 00:19 01/14/20 13:29 Roxicodone PO 5 mg Q4HR PRN Administration Pain 5 to 7 Prochlorperazine Edisylate 10 mg 01/14/20 18:23 01/15/20 04:06 Compazine Inj IVP 10 mg Q6HR PRN Administration Nausea / Vomiting Sodium Chloride 10 ml 01/14/20 00:19 01/14/20 18:29 Normal Saline Flush 0.9% IVP 10 ml PRN PRN Administration NEEDED PER PROVIDER ORDERS Sodium Chloride 10 ml 01/14/20 01:00 01/15/20 08:39 Normal Saline Flush 0.9% IVP Not Given 0100,0900,1700 [facility] - Physical Exam General Appearance: positive: No acute distress Respiratory: positive: Breath sounds nml Cardiovascular: positive: Regular rate & rhythm Abdomen: positive: Tenderness (improved tenderness in the LLQ no R/G/R BS pr esent) Impression/Plan - Problem List Problem List: DIverticulitis, clincially improving continue NPO, IVF, IV abx and if continues to look good plan starting oral intake very slowly tomorrow. Plan of care discussed with patient and hospitalist team
[2020-01-15] MEDS: levoFLOXacin 750 MG/150 ML 750 MG/150 ML BAG IV SCH (19:48)
[2020-01-15] MEDS: HYDROmorphone PCA 20MG/100ML IV PRN (21:38)
[2020-01-16] MEDS: SODIUM CHLORIDE FLUSH 0.9% 10 ML SYRINGE IVP SCH ×4 (00:56→23:48)
[2020-01-16] MEDS: ONDANSETRON 4 MG/2 ML VIAL IVP PRN ×2 (02:43→22:48)
[2020-01-16 05:36] LABS: BASOPHILS % (AUTO) 0.3 %; EOSINOPHILS % (AUTO) 0.6 %; HGB - HEMOGLOBIN 9.3 g/dL (12.0-16.0); LYMPHOCYTES # (AUTO) 0.6 10^3/uL (1.5-3.5); LYMPHOCYTES % (AUTO) 8.7 %; MEAN CORPUSCULAR HEMOGLOBIN 29.6 pg (27.0-31.0); MEAN CORPUSCULAR VOLUME 92.7 fL (81.0-99.0); MEAN PLATELET VOLUME 9.8 fL (7.9-10.8); MONOCYTES # (AUTO) 0.7 10^3/uL (0.0-1.0); MONOCYTES % (AUTO) 9.6 %; NEUTROPHILS # (AUTO) 5.8 10^3/uL (1.5-6.6); NEUTROPHILS % (AUTO) 80.5 %; PLT - PLATELET COUNT 223 10^3/uL (130-450); RED BLOOD COUNT 3.14 10^6/uL (4.20-5.40); RED CELL DISTRIBUTION WIDTH 13.1 % (12.0-15.0); WHITE BLOOD COUNT 7.2 x10^3/uL (4.8-10.8)
[2020-01-16 05:48] LABS: ALBUMIN 2.8 g/dL (3.2-5.5); ALBUMIN/GLOBULIN RATIO 0.9 (1.0-2.2); BILIRUBIN,TOTAL 0.6 mg/dL (0.2-1.0); CALCIUM 8.3 mg/dL (8.5-10.3); CREATININE 0.5 mg/dL (0.4-1.0); TOTAL PROTEIN 5.9 g/dL (6.7-8.2)
[2020-01-16] MEDS: metroNIDAZOLE 500 MG/100 ML 500 MG/100 ML BAG IV SCH ×3 (05:53→22:48)
--- NOTE | 2020-01-16 08:18 | XRAY Report ---
Reason: SOB Procedure Date: 01/16/2020 Accession Number: [id number] / [id number] Procedure: XR - Chest 1 View X-Ray CPT Code: 94507 Final Report FULL RESULT: EXAM: CHEST RADIOGRAPHY EXAM DATE: 01/16/2020 08:09 AM. CLINICAL HISTORY: Shortness of breath. COMPARISON: ABDOMEN/PELVIS W/ 01/14/2020 4:04 PM. TECHNIQUE: 1 view. FINDINGS: Lungs/Pleura: There are streaky opacities at the bilateral lung bases. No pleural effusion. No pneumothorax. Mediastinum: Within exam limitations, there is borderline enlargement of the cardiac silhouette. Other: No acute osseous abnormality. IMPRESSION: 1. There are streaky bilateral basilar pulmonary opacities suggestive of atelectasis. Aspiration or pneumonia cannot be excluded. 2. Borderline enlargement of the cardiac silhouette. RADIA
[2020-01-16] MEDS: DEXTROSE 5%-0.9% NACL 1,000 ML IV SCH ×2 (08:26→22:55)
[2020-01-16] MEDS: ENOXAPARIN 40 MG/0.4 ML SYRINGE SUBQ SCH (09:40)
--- NOTE | 2020-01-16 10:34 | PROVIDER PROGRESS NOTE ---
Subjective - General Admit Date: 01/14/20 - Review of Systems Pulmonary: positive: Cough, Sputum, Other (requiring O2) Gastrointestinal: positive: Abdominal pain (minimal LLQ cramping has passed gas but not a lot had an episode of nausea last night, resolved with zofran) Psychiatric: positive: Anxiety All Other Systems: positive: Reviewed and negative Objective - Patient Data Vital Signs: Vital Signs x48h Temp Pulse Resp BP Pulse Ox 01/16/20 08:28 37.4 C 82 20 113/52 L 92 01/16/20 06:00 14 01/16/20 05:00 37.3 C 84 20 108/59 L 95 Weight: Weight 01/14/20 01/15/20 01/16/20 23:59 23:59 23:59 Weight (kg) 75.5 kg Intake & Output: Intake and Output Totals x24h 01/14/20 01/15/20 01/16/20 23:59 23:59 23:59 Intake Total 5828.334 2384.666 1460 Output Total 950 700 450 Balance 4878.334 3224.845 0136 - Lab Results Lab Results: 01/16/20 05:10 01/16/20 05:10 Other Lab Results: Lab Results x24hrs 01/16/20 01/16/20 01/16/20 Range/Units 05:10 05:10 05:10 WBC 7.2 (4.8-10.8) x10^3/uL RBC 3.14 L (4.20-5.40) 10^6/uL Hgb 9.3 L (12.0-16.0) g/dL Hct 29.1 L (37.0-47.0) % MCV 92.7 (81.0-99.0) fL MCH 29.6 (27.0-31.0) pg MCHC 32.0 (32.0-36.0) g/dL RDW 13.1 (12.0-15.0) % Plt Count 223 (130-450) 10^3/uL MPV 9.8 (7.9-10.8) fL Neut # (Auto) 5.8 (1.5-6.6) 10^3/uL Lymph # (Auto) 0.6 L (1.5-3.5) 10^3/uL [place] # (Auto) 0.7 (0.0-1.0) 10^3/uL Eos # (Auto) 0.0 (0.0-0.7) 10^3/uL Baso # (Auto) 0.0 (0.0-0.1) 10^3/uL Absolute Nucleated RBC 0.00 x10^3/uL Nucleated RBC % 0.0 /100WBC Sodium 139 (135-145) mmol/L Potassium 3.6 (3.5-5.0) mmol/L Chloride 109 (101-111) mmol/L Carbon Dioxide 24 (21-32) mmol/L Anion Gap 6.0 (6-13) BUN 16 (6-20) mg/dL Creatinine 0.5 (0.4-1.0) mg/dL Estimated GFR (MDRD) 126 (>89) Glucose 132 H (70-100) mg/dL Calcium 8.3 L (8.5-10.3) mg/dL Total Bilirubin 0.6 (0.2-1.0) mg/dL AST 14 (10-42) IU/L ALT 14 (10-60) IU/L Alkaline Phosphatase 41 L (42-121) IU/L C-Reactive Protein 19.2 H (0-1.0) mg/dL Total Protein 5.9 L (6.7-8.2) g/dL Albumin 2.8 L (3.2-5.5) g/dL Globulin 3.1 (2.1-4.2) g/dL Albumin/Globulin Ratio 0.9 L (1.0-2.2) - Imaging Results Imaging Results Comments: CXR reviewed and report read - Current Medications Current Medications: Current Medications Generic Name Dose Route Start Last Admin Trade Name Freq PRN Reason Stop Dose Admin Acetaminophen 650 mg 01/14/20 00:19 01/14/20 14:39 Tylenol PO 650 mg Q4HR PRN Administration Pain 1 to 4 Enoxaparin Sodium 40 mg 01/16/20 09:00 01/16/20 09:40 Lovenox SUBQ 40 mg DAILY JULIA Administration Hydromorphone HCl 0 mg 01/14/20 19:56 01/15/20 21:38 Dilaudid Research Chief Engineer 20mg/100ml IV 20 mg PRN PRN Administration PAIN Protocol Metronidazole 500 mg in 100 mls @ 100 mls/hr 01/14/20 19:00 01/16/20 06:53 Flagyl 500 Mg/100 Ml IV Infused Q8H [facility] Infusion Levofloxacin 750 mg in 150 mls @ 100 mls/hr 01/14/20 20:00 01/15/20 21:18 Levaquin 750 Mg/150 Ml IV Infused Q24H [facility] Infusion Dextrose/Sodium Chloride 1,000 mls @ 100 mls/hr 01/15/20 08:00 01/16/20 08:26 D5ns IV 100 mls/hr .Q10H [facility] Administration Ondansetron HCl 4 mg 01/14/20 00:19 01/16/20 02:43 Zofran Inj IVP 4 mg Q6HR PRN Administration Nausea / Vomiting Oxycodone HCl 5 mg 01/14/20 00:19 01/14/20 13:29 Roxicodone PO 5 mg Q4HR PRN Administration Pain 5 to 7 Prochlorperazine Edisylate 10 mg 01/14/20 18:23 01/15/20 04:06 Compazine Inj IVP 10 mg Q6HR PRN Administration Nausea / Vomiting Sodium Chloride 10 ml 01/14/20 00:19 01/14/20 18:29 Normal Saline Flush 0.9% IVP 10 ml PRN PRN Administration NEEDED PER PROVIDER ORDERS Sodium Chloride 10 ml 01/14/20 01:00 01/16/20 00:56 Normal Saline Flush 0.9% IVP Not Given 0100,0900,1700 [facility] - Physical Exam General Appearance: positive: No acute distress Respiratory: positive: Breath sounds nml (decreased at bases bilaterally) Cardiovascular: positive: Regular rate & rhythm Abdomen: positive: Other (Mild LLQ tendereness with deep palpation, no R/G/R BS present) Skin: positive: Warm, Dry Neurologic/Psychiatric: positive: Oriented x3 (anxious today) Impression/Plan - Problem List Problem List: Diverticulitis with microperforation She has responded well to aggressive non-surgical management. Today we can start her slowly on PO intake starting with ice chips, sips and popsicles and progressing if successful to full clear diet through the day. Recommend to continue IV abx until tolerating a soft diet which we will slowly transition to over the next 48 hours is she continue to progress well. All other plan of care issues per hospitalist team
[2020-01-16] MEDS ORDERED: DEXTROSE 5%-0.9% NACL 1,000 ML IV SCH (10:37)
--- NOTE | 2020-01-16 11:19 | PROVIDER PROGRESS NOTE ---
Subjective - Prog Note Date Prog Note Date: 01/16/20 - Subjective Pt reports feeling: Improved Subjective: pt report her abdominal pain is good control. surgeon plan to gradually increase her oral input. Yesterday evening pt developed 37.9 degree fever, then pt need 2 liter of O2 to remain 95%. CXR reveals bilateral pulmonary opacities. Now pt is isolation room with Covid tested. blood culture was done. incentive spirometer and ambulation are encouraged for pt. pt's questions were answered and she is happy for us to update and explain the conditions. Current Medications - Current Medications Current Medications: Active Medications Acetaminophen (Tylenol) 650 mg PO Q4HR PRN PRN Reason: Pain 1 to 4 Last Admin: 01/14/20 14:39 Dose: 650 mg Bisacodyl (Dulcolax Supp) 10 mg TX ONCE PRN PRN Reason: Bowel Protocol Stop: 01/21/20 08:59 Enoxaparin Sodium (Lovenox) 40 mg SUBQ DAILY JULIA Last Admin: 01/16/20 09:40 Dose: 40 mg Hydromorphone HCl (Dilaudid Director Mission 20mg/100ml) 0 mg IV PRN PRN; Protocol PRN Reason: PAIN Last Admin: 01/15/20 21:38 Dose: 20 mg Metronidazole (Flagyl 500 Mg/100 Ml) 500 mg in 100 mls @ 100 mls/hr IV Q8H [facility] Last Infusion: 01/16/20 06:53 Dose: Infused Levofloxacin (Levaquin 750 Mg/150 Ml) 750 mg in 150 mls @ 100 mls/hr IV Q24H [facility] Last Infusion: 01/15/20 21:18 Dose: Infused Dextrose/Sodium Chloride (D5ns) 1,000 mls @ 75 mls/hr IV .[id number] [facility] Ondansetron HCl (Zofran Inj) 4 mg IVP Q6HR PRN PRN Reason: Nausea / Vomiting Last Admin: 01/16/20 02:43 Dose: 4 mg Ondansetron HCl (Zofran Odt) 4 mg TL Q6HR PRN PRN Reason: Nausea / Vomiting Oxycodone HCl (Roxicodone) 5 mg PO Q4HR PRN PRN Reason: Pain 5 to 7 Last Admin: 01/14/20 13:29 Dose: 5 mg Prochlorperazine Edisylate (Compazine Inj) 10 mg IVP Q6HR PRN PRN Reason: Nausea / Vomiting Last Admin: 01/15/20 04:06 Dose: 10 mg Sodium Chloride (Normal Saline Flush 0.9%) 10 ml IVP PRN PRN PRN Reason: NEEDED PER PROVIDER ORDERS Last Admin: 01/14/20 18:29 Dose: 10 ml Sodium Chloride (Normal Saline Flush 0.9%) 10 ml IVP 0100,0900,1700 JULIA Last Admin: 01/16/20 00:56 Dose: Not Given No Known Home Medications 01/14/20 Objective - Vital Signs/Intake & Output Vital Signs: Vital Signs x48h Temp Pulse Resp BP Pulse Ox 01/16/20 08:28 37.4 C 82 20 113/52 L 92 01/16/20 06:00 14 01/16/20 05:00 37.3 C 84 20 108/59 L 95 Intake & Output: Intake & Output 01/13/20 01/14/20 01/15/20 01/16/20 23:59 23:59 23:59 23:59 Intake Total 100 5828.334 2384.666 1460 Output Total 950 700 450 Balance 100 4878.334 2513.718 6139 - Objective General Appearance: positive: No acute distress, Alert. negative: Lethargic Eyes Bilateral: positive: Normal inspection, PERRL, No lid inflammation ENT: positive: ENT inspection nml, Pharynx nml, No signs of dehydration. negative: Purulent nasal drainage Neck: positive: Nml inspection, Thyroid nml, No JVD, Trachea midline. negative: Thyromegaly, Lymphadenopathy (R), Lymphadenopathy (L), Stiff neck, Tracheal deviation Respiratory: positive: Chest non-tender, No respiratory distress, Rales. negative: Wheezes, Rhonchi Cardiovascular: positive: Regular rate & rhythm, No murmur, No gallop. negative: Irregularly irregular, Extrasystoles, Tachycardia, Bradycardia, JVD present, Systolic murmur, Diastolic murmur Peripheral Pulses: 2+ Radial (R), 2+ Radial (L), 2+ Dorsalis pedis (R), 2+ Dorsalis pedis (L) Abdomen: positive: Non-tender, No organomegaly, Nml bowel sounds, No distention. negative: Tenderness, Guarding, Rebound Back: positive: Nml inspection. negative: CVA tenderness (R), CVA tenderness (L) Skin: positive: Color nml, No rash, Warm, Dry. negative: Cyanosis, Diaphoresis, Pallor Extremities: positive: Non-tender, Full ROM, Nml appearance. negative: Calf tenderness, Adolfo's sign/cords Neurologic/Psychiatric: positive: Oriented x3, Motor nml, Sensation nml. negative: Weakness, Sensory loss, Facial droop, Slurred/abnml speech, Depressed mood/affect - Lab Results Fish Bones: 01/16/20 05:10 01/16/20 05:10 Other Labs: Lab Results x24hrs 01/16/20 01/16/20 01/16/20 Range/Units 05:10 05:10 05:10 WBC 7.2 (4.8-10.8) x10^3/uL RBC 3.14 L (4.20-5.40) 10^6/uL Hgb 9.3 L (12.0-16.0) g/dL Hct 29.1 L (37.0-47.0) % MCV 92.7 (81.0-99.0) fL MCH 29.6 (27.0-31.0) pg MCHC 32.0 (32.0-36.0) g/dL RDW 13.1 (12.0-15.0) % Plt Count 223 (130-450) 10^3/uL MPV 9.8 (7.9-10.8) fL Neut # (Auto) 5.8 (1.5-6.6) 10^3/uL Lymph # (Auto) 0.6 L (1.5-3.5) 10^3/uL [place] # (Auto) 0.7 (0.0-1.0) 10^3/uL Eos # (Auto) 0.0 (0.0-0.7) 10^3/uL Baso # (Auto) 0.0 (0.0-0.1) 10^3/uL Absolute Nucleated RBC 0.00 x10^3/uL Nucleated RBC % 0.0 /100WBC Sodium 139 (135-145) mmol/L Potassium 3.6 (3.5-5.0) mmol/L Chloride 109 (101-111) mmol/L Carbon Dioxide 24 (21-32) mmol/L Anion Gap 6.0 (6-13) BUN 16 (6-20) mg/dL Creatinine 0.5 (0.4-1.0) mg/dL Estimated GFR (MDRD) 126 (>89) Glucose 132 H (70-100) mg/dL Calcium 8.3 L (8.5-10.3) mg/dL Total Bilirubin 0.6 (0.2-1.0) mg/dL AST 14 (10-42) IU/L ALT 14 (10-60) IU/L Alkaline Phosphatase 41 L (42-121) IU/L C-Reactive Protein 19.2 H (0-1.0) mg/dL Total Protein 5.9 L (6.7-8.2) g/dL Albumin 2.8 L (3.2-5.5) g/dL Globulin 3.1 (2.1-4.2) g/dL Albumin/Globulin Ratio 0.9 L (1.0-2.2) ABX Reporting Has patient been on IV antibiotics over the past 48 hours?: Yes Sepsis Event Note (H) - Sepsis Criteria Sepsis Criteria: Recorded Heart Rate greater than 90 bpm, WBC count greater than 12,000 or less than 4000 Assessment/Plan - Problem List (1) Diverticulitis Impression: 01/15 continue improved. WBC is running down to normal. pt report her abdominal pain is good controlled. continue followup surgeon, agree gradually introduce lighted diet continue antibiotics and pain control encourage pt ambulate 01/14 improved. pt report her abdominal pain is better controlled. pt was consulted with surgeon, will followup surgeon continue antibiotics, continue NPO, continue IVF of D5 lab monitor (2)respiratory distress with hypoxia 01/15pt has lower degree of fever, she need 2 liter of O2 with 95% sats. CXR reveals bilateral basilar pulmonary opacities, aspiration or pneumonia can not be excluded. pt has Levaquin, will continue the antibiotics reduce IVF to 75CC/L supplement of O2 as needed test Covid 19, since pt is inpt blood culture is ordered, will followup order incentive spirocenter and encourage pt ambulate (3) Urinary tract infection 01/15 UA sensitive study to all antibiotics, continue Levaquin UA analysis reveals Ecoli positive, continue antibiotics Levaquin. (4) Hypokalemia Conclusion/Plan: resolved (5) Hyperglycemia Conclusion/Plan: resolved. A1C is 5.5 (6) Ovarian cyst, right Conclusion/Plan: discussed with pt, pt understood the risk, advise pt closely followup her PCP, and make the appointment to see OBGYN. pt state she will.
[2020-01-16] MEDS: levoFLOXacin 750 MG/150 ML 750 MG/150 ML BAG IV SCH (19:43)
[2020-01-17] MEDS: DEXTROSE 5%-0.9% NACL 1,000 ML IV SCH ×2 (04:19→16:01)
[2020-01-17] MEDS: ONDANSETRON 4 MG/2 ML VIAL IVP PRN ×2 (05:22→16:02)
[2020-01-17] MEDS: metroNIDAZOLE 500 MG/100 ML 500 MG/100 ML BAG IV SCH ×3 (05:22→22:55)
[2020-01-17 05:34] LABS: BASOPHILS % (AUTO) 0.3 %; EOSINOPHILS # (AUTO) 0.1 10^3/uL (0.0-0.7); EOSINOPHILS % (AUTO) 1.8 %; HGB - HEMOGLOBIN 9.5 g/dL (12.0-16.0); LYMPHOCYTES # (AUTO) 1.2 10^3/uL (1.5-3.5); LYMPHOCYTES % (AUTO) 19.5 %; MEAN CORPUSCULAR HEMOGLOBIN 28.4 pg (27.0-31.0); MEAN CORPUSCULAR HGB CONC 31.3 g/dL (32.0-36.0); MEAN PLATELET VOLUME 9.4 fL (7.9-10.8); MONOCYTES # (AUTO) 0.6 10^3/uL (0.0-1.0); MONOCYTES % (AUTO) 10.1 %; NEUTROPHILS # (AUTO) 4.1 10^3/uL (1.5-6.6); NEUTROPHILS % (AUTO) 67.6 %; PLT - PLATELET COUNT 233 10^3/uL (130-450); RED BLOOD COUNT 3.34 10^6/uL (4.20-5.40); RED CELL DISTRIBUTION WIDTH 13.1 % (12.0-15.0)
[2020-01-17 05:51] LABS: ALBUMIN 2.9 g/dL (3.2-5.5); ALBUMIN/GLOBULIN RATIO 1.1 (1.0-2.2); BILIRUBIN,TOTAL 0.7 mg/dL (0.2-1.0); CALCIUM 8.3 mg/dL (8.5-10.3); CREATININE 0.4 mg/dL (0.4-1.0); TOTAL PROTEIN 5.6 g/dL (6.7-8.2)
[2020-01-17] MEDS: SODIUM CHLORIDE FLUSH 0.9% 10 ML SYRINGE IVP SCH ×2 (08:54→16:02)
[2020-01-17] MEDS: PROCHLORPERAZINE 10 MG/2 ML VIAL IVP PRN ×2 (08:55→20:24)
[2020-01-17] MEDS: ENOXAPARIN 40 MG/0.4 ML SYRINGE SUBQ SCH (08:56)
--- NOTE | 2020-01-17 11:02 | PROVIDER PROGRESS NOTE ---
Subjective - General Admit Date: 01/14/20 - Review of Systems General: positive: No symptoms Pulmonary: positive: Cough Gastrointestinal: positive: Abdominal pain (still some cramping and some nausea, continues to pass gas, no BM) Psychiatric: positive: Anxiety All Other Systems: positive: Reviewed and negative Objective - Patient Data Vital Signs: Vital Signs x48h Temp Pulse Resp BP Pulse Ox 01/17/20 08:05 36.9 C 78 14 122/69 93 01/17/20 05:40 16 01/17/20 05:33 37.3 C 76 14 126/79 95 Intake & Output: Intake and Output Totals x24h 01/15/20 01/16/20 01/17/20 23:59 23:59 23:59 Intake Total 2384.666 2960.000 350 Output Total 700 450 300 Balance 3692.912 0204.000 50 - Lab Results Lab Results: 01/17/20 04:55 01/17/20 04:55 Other Lab Results: Lab Results x24hrs 01/17/20 01/17/20 Range/Units 04:55 04:55 WBC 6.0 (4.8-10.8) x10^3/uL RBC 3.34 L (4.20-5.40) 10^6/uL Hgb 9.5 L (12.0-16.0) g/dL Hct 30.4 L (37.0-47.0) % MCV 91.0 (81.0-99.0) fL MCH 28.4 (27.0-31.0) pg MCHC 31.3 L (32.0-36.0) g/dL RDW 13.1 (12.0-15.0) % Plt Count 233 (130-450) 10^3/uL MPV 9.4 (7.9-10.8) fL Neut # (Auto) 4.1 (1.5-6.6) 10^3/uL Lymph # (Auto) 1.2 L (1.5-3.5) 10^3/uL [place] # (Auto) 0.6 (0.0-1.0) 10^3/uL Eos # (Auto) 0.1 (0.0-0.7) 10^3/uL Baso # (Auto) 0.0 (0.0-0.1) 10^3/uL Absolute Nucleated RBC 0.00 x10^3/uL Nucleated RBC % 0.0 /100WBC Sodium 137 (135-145) mmol/L Potassium 3.4 L (3.5-5.0) mmol/L Chloride 106 (101-111) mmol/L Carbon Dioxide 26 (21-32) mmol/L Anion Gap 5.0 L (6-13) BUN 12 (6-20) mg/dL Creatinine 0.4 (0.4-1.0) mg/dL Estimated GFR (MDRD) 163 (>89) Glucose 117 H (70-100) mg/dL Calcium 8.3 L (8.5-10.3) mg/dL Total Bilirubin 0.7 (0.2-1.0) mg/dL AST 14 (10-42) IU/L ALT 12 (10-60) IU/L Alkaline Phosphatase 41 L (42-121) IU/L C-Reactive Protein 11.0 H (0-1.0) mg/dL Total Protein 5.6 L (6.7-8.2) g/dL Albumin 2.9 L (3.2-5.5) g/dL Globulin 2.7 (2.1-4.2) g/dL Albumin/Globulin Ratio 1.1 (1.0-2.2) - Current Medications Current Medications: Current Medications Generic Name Dose Route Start Last Admin Trade Name Freq PRN Reason Stop Dose Admin Acetaminophen 650 mg 01/14/20 00:19 01/14/20 14:39 Tylenol PO 650 mg Q4HR PRN Administration Pain 1 to 4 Enoxaparin Sodium 40 mg 01/16/20 09:00 01/17/20 08:56 Lovenox SUBQ 40 mg DAILY JULIA Administration Hydromorphone HCl 0 mg 01/14/20 19:56 01/15/20 21:38 Dilaudid Leases And Land Supervisor 20mg/100ml IV 20 mg PRN PRN Administration PAIN Protocol Metronidazole 500 mg in 100 mls @ 100 mls/hr 01/14/20 19:00 01/17/20 06:30 Flagyl 500 Mg/100 Ml IV Infused Q8H [facility] Infusion Levofloxacin 750 mg in 150 mls @ 100 mls/hr 01/14/20 20:00 03/27/20 21:50 Levaquin 750 Mg/150 Ml IV Infused Q24H [facility] Infusion Dextrose/Sodium Chloride 1,000 mls @ 75 mls/hr 01/16/20 10:40 01/17/20 04:19 D5ns IV Not Given .[id number] [facility] Ondansetron HCl 4 mg 01/14/20 00:19 01/17/20 05:22 Zofran Inj IVP 4 mg Q6HR PRN Administration Nausea / Vomiting Oxycodone HCl 5 mg 01/14/20 00:19 01/14/20 13:29 Roxicodone PO 5 mg Q4HR PRN Administration Pain 5 to 7 Prochlorperazine Edisylate 10 mg 01/14/20 18:23 01/17/20 08:55 Compazine Inj IVP 10 mg Q6HR PRN Administration Nausea / Vomiting Sodium Chloride 10 ml 01/14/20 00:19 01/14/20 18:29 Normal Saline Flush 0.9% IVP 10 ml PRN PRN Administration NEEDED PER PROVIDER ORDERS Sodium Chloride 10 ml 01/14/20 01:00 01/17/20 08:54 Normal Saline Flush 0.9% IVP Not Given 0100,0900,1700 [facility] - Physical Exam General Appearance: positive: No acute distress Respiratory: positive: Breath sounds nml Cardiovascular: positive: Regular rate & rhythm Abdomen: positive: Other (mild tenderness with deep palpation in the LLQ no R/G/R BS present) Impression/Plan - Problem List Problem List: Diverticulitis with microperforation Plan to continue to progress diet slowly to full liquid today and possibly soft later today, continue IV abx until PO intack confirmed, ok to transition off INSURANCE ATTORNEY, all other plan of care management per hospitalist team. This was discussed with the patient and the hospitalist.
--- NOTE | 2020-01-17 11:28 | PROVIDER PROGRESS NOTE ---
Assessment/Plan - Problem List (1) Diverticulitis Assessment/Plan: She is improving slowly every day, has appetite, Dilaudid took the edge off the pain, had a BM Will advance diet following the recommendations of the Gen Surgeon, Dr Thurston. Will stop AIR BAG BUFFER pump, increase activity, change to oral antibx when OK with Dr Thurston (2) Hypersomnolence Assessment/Plan: Related to AIR BAG BUFFER pump. Will stop AIR BAG BUFFER pump, order iv Dialudid pushes prn severe pain. (3) E-coli UTI Assessment/Plan: Continue iv antibx, until changing to po (for the diverticulitis). (4) Abnormal CXR Assessment/Plan: Yesterday she had a fever and was hypoxic. A chest x-ray was obtained that showed atelectasis versus pneumonia. Today she is on room air with an adequate saturation. Will order incentive spirometry and decrease oversedation from the AIR BAG BUFFER pump. A COVID nasal swab is pending, therefore respiratory isolation continues until we know the results. (5) Hypokalemia Assessment/Plan: Replace Follow BMP daily. (6) Anemia Assessment/Plan: Probably hemodilutional since she is 11L (+) in fluid balance since this admission. Will check B12, Folate stores and Iron levels and replace what is low. - Current Meds Current Meds: Current Medications Generic Name Dose Route Start Last Admin Trade Name Freq PRN Reason Stop Dose Admin Acetaminophen 650 mg 01/14/20 00:19 01/14/20 14:39 Tylenol PO 650 mg Q4HR PRN Administration Pain 1 to 4 Enoxaparin Sodium 40 mg 01/16/20 09:00 01/17/20 08:56 Lovenox SUBQ 40 mg DAILY JULIA Administration Metronidazole 500 mg in 100 mls @ 100 mls/hr 01/14/20 19:00 01/17/20 06:30 Flagyl 500 Mg/100 Ml IV Infused Q8H JULIA Infusion Levofloxacin 750 mg in 150 mls @ 100 mls/hr 01/14/20 20:00 01/16/20 21:50 Levaquin 750 Mg/150 Ml IV Infused Q24H JULIA Infusion Dextrose/Sodium Chloride 1,000 mls @ 75 mls/hr 01/16/20 10:40 01/17/20 04:19 D5ns IV Not Given .[id number] JULIA Ondansetron HCl 4 mg 01/14/20 00:19 01/17/20 05:22 Zofran Inj IVP 4 mg Q6HR PRN Administration Nausea / Vomiting Oxycodone HCl 5 mg 01/14/20 00:19 01/14/20 13:29 Roxicodone PO 5 mg Q4HR PRN Administration Pain 5 to 7 Prochlorperazine Edisylate 10 mg 01/14/20 18:23 01/17/20 08:55 Compazine Inj IVP 10 mg Q6HR PRN Administration Nausea / Vomiting Sodium Chloride 10 ml 01/14/20 00:19 01/14/20 18:29 Normal Saline Flush 0.9% IVP 10 ml PRN PRN Administration NEEDED PER PROVIDER ORDERS Sodium Chloride 10 ml 01/14/20 01:00 01/17/20 08:54 Normal Saline Flush 0.9% IVP Not Given 0100,0900,1700 JULIA - Lab Result Fish Bone Diagrams: 01/17/20 04:55 01/17/20 04:55 - Additional Planning My Orders: My Active Orders 01/17/20 11:25 Miscellaenous Nursing Order [RC] QSHIFT 01/17/20 12:00 HYDROmorphone (VIAL) [Dilaudid (Vial)] 2 mg IVP Q6H PRN Subjective - Subjective Patient Reports: Resting Comfortably, Other (Had a BM and feels good) Objective Vital Signs: Vital Signs - 24 hr 01/16/20 01/16/20 01/16/20 11:52 14:00 16:00 Temperature 37.1 C Heart Rate [ 85 Brachial] Respiratory 24 16 18 Rate Blood Pressure 143/54 H [Right Brachial artery] O2 Saturation 91 L 01/16/20 01/16/20 01/16/20 16:22 21:00 22:00 Temperature 37.2 C 37.3 C Heart Rate [ 81 81 Brachial] Respiratory 20 20 16 Rate Blood Pressure 114/70 107/73 [Right Brachial artery] O2 Saturation 98 95 01/16/20 01/17/20 01/17/20 23:45 05:33 05:40 Temperature 37.1 C 37.3 C Heart Rate [ 77 76 Brachial] Respiratory 18 14 16 Rate Blood Pressure 118/73 126/79 [Right Brachial artery] O2 Saturation 96 95 01/17/20 08:05 Temperature 36.9 C Heart Rate [ 78 Brachial] Respiratory 14 Rate Blood Pressure 122/69 [Right Brachial artery] O2 Saturation 93 Oxygen O2 Source Room air I&O (Last 24 Hrs): Intake and Output Totals x24h 01/15/20 01/16/20 01/17/20 23:59 23:59 23:59 Intake Total 2384.666 2960.000 350 Output Total 700 450 300 Balance 5965.607 7138.000 50 General: Alert, Oriented x3 HEENT: Mucous membr. moist/pink Neck: Supple Neuro: Alert, Non Focal Cardiovascular: Regular rate Respiratory: No respiratory distress Abdomen: Soft, Other (No stethoscope available to listen to bowel sounds) Extremities: No edema - Results Results: Laboratory Results WBC 6.0 x10^3/uL (4.8-10.8) 01/17/20 04:55 RBC 3.34 10^6/uL (4.20-5.40) L 01/17/20 04:55 Hgb 9.5 g/dL (12.0-16.0) L 01/17/20 04:55 Hct 30.4 % (37.0-47.0) L 01/17/20 04:55 MCV 91.0 fL (81.0-99.0) 01/17/20 04:55 MCH 28.4 pg (27.0-31.0) 01/17/20 04:55 MCHC 31.3 g/dL (32.0-36.0) L 01/17/20 04:55 RDW 13.1 % (12.0-15.0) 01/17/20 04:55 Plt Count 233 10^3/uL (130-450) 01/17/20 04:55 MPV 9.4 fL (7.9-10.8) 01/17/20 04:55 Neut # (Auto) 4.1 10^3/uL (1.5-6.6) 01/17/20 04:55 Lymph # (Auto) 1.2 10^3/uL (1.5-3.5) L 01/17/20 04:55 [place] # (Auto) 0.6 10^3/uL (0.0-1.0) 01/17/20 04:55 Eos # (Auto) 0.1 10^3/uL (0.0-0.7) 01/17/20 04:55 Baso # (Auto) 0.0 10^3/uL (0.0-0.1) 01/17/20 04:55 Absolute Nucleated RBC 0.00 x10^3/uL 01/17/20 04:55 Total Counted 100 01/14/20 04:25 Band Neuts % (Manual) 7 % (0-10) 01/14/20 04:25 Abnorm Lymph % (Manual) 0 % 01/14/20 04:25 Nucleated RBC % 0.0 /100WBC 01/17/20 04:55 Neutrophils # (Manual) 10.1 10^3/uL (1.5-6.6) H 01/14/20 04:25 Lymphocytes # (Manual) 0.6 10^3/uL (1.5-3.5) L 01/14/20 04:25 Monocytes # (Manual) 0.4 10^3/uL (0.0-1.0) 01/14/20 04:25 Eosinophils # (Manual) 0.0 10^3/uL (0-0.7) 01/14/20 04:25 Basophils # (Manual) 0.0 10^3/uL (0-0.1) 01/14/20 04:25 Differential Comment MANUAL DIFFERENTIAL 01/14/20 04:25 Platelet Estimate NORMAL (130-450,000) (NORMAL) 01/14/20 04:25 RBC Morph Micro Appear NORMAL APPEARANCE (NORMAL) 01/14/20 04:25 PT 19.1 secs (9.9-12.6) H 01/14/20 17:45 INR 1.7 (0.8-1.2) H 01/14/20 17:45 Sodium 137 mmol/L (135-145) 01/17/20 04:55 Potassium 3.4 mmol/L (3.5-5.0) L 01/17/20 04:55 Chloride 106 mmol/L (101-111) 01/17/20 04:55 Carbon Dioxide 26 mmol/L (21-32) 01/17/20 04:55 Anion Gap 5.0 (6-13) L 01/17/20 04:55 BUN 12 mg/dL (6-20) 01/17/20 04:55 Creatinine 0.4 mg/dL (0.4-1.0) 01/17/20 04:55 Estimated GFR (MDRD) 163 (>89) 01/17/20 04:55 Glucose 117 mg/dL (70-100) H 01/17/20 04:55 POC Whole Bld Glucose 102 mg/dL (70 - 100) H 01/14/20 11:10 Glycated Hemoglobin 5.5 % (4.6-6.2) 01/14/20 04:25 Estim Average Glucose 111 (70-100) H 01/14/20 04:25 Lactic Acid 0.8 mmol/L (0.5-2.2) 01/14/20 08:30 Calcium 8.3 mg/dL (8.5-10.3) L 01/17/20 04:55 Magnesium 1.9 mg/dL (1.7-2.8) 01/15/20 04:50 Total Bilirubin 0.7 mg/dL (0.2-1.0) 01/17/20 04:55 AST 14 IU/L (10-42) 01/17/20 04:55 ALT 12 IU/L (10-60) 01/17/20 04:55 Alkaline Phosphatase 41 IU/L (42-121) L 01/17/20 04:55 C-Reactive Protein 11.0 mg/dL (0-1.0) H 01/17/20 04:55 Total Protein 5.6 g/dL (6.7-8.2) L 01/17/20 04:55 Albumin 2.9 g/dL (3.2-5.5) L 01/17/20 04:55 Globulin 2.7 g/dL (2.1-4.2) 01/17/20 04:55 Albumin/Globulin Ratio 1.1 (1.0-2.2) 01/17/20 04:55 Lipase 21 U/L (22-51) L 01/13/20 22:02 CA 125 Antigen 19.3 U/mL (0.0-35.0) 01/14/20 08:30 Urine Color YELLOW 01/13/20 22:09 Urine Clarity HAZY (CLEAR) 01/13/20 22:09 Urine pH 6.0 PH (5.0-7.5) 01/13/20 22:09 Ur Specific [place] 1.025 (1.002-1.030) 01/13/20 22:09 Urine Protein 30 mg/dL (NEGATIVE) H 01/13/20 22:09 Urine Glucose (UA) NEGATIVE mg/dL (NEGATIVE) 01/13/20 22:09 Urine Ketones 40 mg/dL (NEGATIVE) H 01/13/20 22:09 Urine Occult Blood SMALL (NEGATIVE) H 01/13/20 22:09 Urine Nitrite POSITIVE (NEGATIVE) H 01/13/20 22:09 Urine Bilirubin NEGATIVE (NEGATIVE) 01/13/20 22:09 Urine Urobilinogen 0.2 (NORMAL) E.U./dL (NORMAL) 01/13/20 22:09 Ur Leukocyte Esterase SMALL (NEGATIVE) H 01/13/20 22:09 Urine RBC 0-5 /HPF (0-5) 01/13/20 22:09 Urine WBC 11-25 /HPF (0-5) H 01/13/20 22:09 Ur Squamous Epith Cells RARE Squamous (<= Few) 01/13/20 22:09 Urine Bacteria Moderate /HPF (None Seen) H 01/13/20 22:09 Urine Casts 0-2 Hyaline Casts /LPF 01/13/20 22:09 Ur Microscopic Review INDICATED 01/13/20 22:09 Urine Culture Comments INDICATED 01/13/20 22:09 Blood Type A POSITIVE 01/14/20 21:19 Blood Type Recheck A POSITIVE 01/14/20 04:25 Antibody Screen NEGATIVE 01/14/20 21:19 Sepsis Event Note (H) - Sepsis Criteria Sepsis Criteria: Recorded Heart Rate greater than 90 bpm, WBC count greater than 12,000 or less than 4000
[2020-01-17] MEDS ORDERED: HYDROmorphone 2 MG/ML VIAL IVP PRN (12:00)
[2020-01-17] MEDS: oxyCODONE 5 MG TABLET PO PRN ×2 (13:58→20:22)
[2020-01-17] MEDS: levoFLOXacin 750 MG/150 ML 750 MG/150 ML BAG IV SCH (20:00)
[2020-01-18] MEDS: SODIUM CHLORIDE FLUSH 0.9% 10 ML SYRINGE IVP SCH ×2 (01:16→10:04)
[2020-01-18] MEDS: ONDANSETRON ODT 4 MG TABLET TL PRN ×3 (01:23→22:46)
[2020-01-18] MEDS: oxyCODONE 5 MG TABLET PO PRN ×3 (01:26→22:45)
[2020-01-18 05:13] LABS: BASOPHILS % (AUTO) 0.5 %; EOSINOPHILS # (AUTO) 0.1 10^3/uL (0.0-0.7); EOSINOPHILS % (AUTO) 1.3 %; HGB - HEMOGLOBIN 10.1 g/dL (12.0-16.0); LYMPHOCYTES % (AUTO) 18.6 %; MEAN CORPUSCULAR HEMOGLOBIN 30.1 pg (27.0-31.0); MEAN CORPUSCULAR HGB CONC 33.2 g/dL (32.0-36.0); MEAN CORPUSCULAR VOLUME 90.5 fL (81.0-99.0); MEAN PLATELET VOLUME 9.1 fL (7.9-10.8); MONOCYTES # (AUTO) 0.6 10^3/uL (0.0-1.0); MONOCYTES % (AUTO) 11.4 %; NEUTROPHILS # (AUTO) 3.8 10^3/uL (1.5-6.6); NEUTROPHILS % (AUTO) 67.8 %; PLT - PLATELET COUNT 274 10^3/uL (130-450); RED BLOOD COUNT 3.36 10^6/uL (4.20-5.40); RED CELL DISTRIBUTION WIDTH 12.8 % (12.0-15.0); WHITE BLOOD COUNT 5.6 x10^3/uL (4.8-10.8)
[2020-01-18 05:32] LABS: ALBUMIN 2.7 g/dL (3.2-5.5); BILIRUBIN,TOTAL 0.6 mg/dL (0.2-1.0); CALCIUM 8.3 mg/dL (8.5-10.3); CREATININE 0.4 mg/dL (0.4-1.0); CRP - C-REACTIVE PROTEIN 6.1 mg/dL (0-1.0); TOTAL PROTEIN 5.4 g/dL (6.7-8.2)
[2020-01-18] MEDS: metroNIDAZOLE 500 MG/100 ML 500 MG/100 ML BAG IV SCH (06:27)
[2020-01-18] MEDS ORDERED: POTASSIUM CHLORIDE 20 MEQ TABLET PO SCH ×3 (07:07→17:00)
[2020-01-18] MEDS: DEXTROSE 5%-0.9% NACL 1,000 ML IV SCH (10:03)
[2020-01-18] MEDS: ENOXAPARIN 40 MG/0.4 ML SYRINGE SUBQ SCH (10:04)
--- NOTE | 2020-01-18 10:42 | PROVIDER PROGRESS NOTE ---
Subjective - General Admit Date: 01/14/20 - Review of Systems General: positive: No symptoms Pulmonary: positive: Cough Gastrointestinal: positive: Abdominal pain (minimal, tolerating full liquid and some softs passing gas had small BM) Psychiatric: positive: Anxiety All Other Systems: positive: Reviewed and negative Objective - Patient Data Vital Signs: Vital Signs x48h Temp Pulse Resp BP Pulse Ox 01/18/20 08:23 36.9 C 76 16 129/86 H 94 Intake & Output: Intake and Output Totals x24h 01/16/20 01/17/20 01/18/20 23:59 23:59 23:59 Intake Total 2960.000 8148.991 2508 Output Total 450 980 Balance 2510.000 303.043 7275 - Lab Results Lab Results: 01/18/20 04:45 01/18/20 04:45 Other Lab Results: Lab Results x24hrs 01/18/20 01/18/20 Range/Units 04:45 04:45 WBC 5.6 (4.8-10.8) x10^3/uL RBC 3.36 L (4.20-5.40) 10^6/uL Hgb 10.1 L (12.0-16.0) g/dL Hct 30.4 L (37.0-47.0) % MCV 90.5 (81.0-99.0) fL MCH 30.1 (27.0-31.0) pg MCHC 33.2 (32.0-36.0) g/dL RDW 12.8 (12.0-15.0) % Plt Count 274 (130-450) 10^3/uL MPV 9.1 (7.9-10.8) fL Neut # (Auto) 3.8 (1.5-6.6) 10^3/uL Lymph # (Auto) 1.0 L (1.5-3.5) 10^3/uL [place] # (Auto) 0.6 (0.0-1.0) 10^3/uL Eos # (Auto) 0.1 (0.0-0.7) 10^3/uL Baso # (Auto) 0.0 (0.0-0.1) 10^3/uL Absolute Nucleated RBC 0.00 x10^3/uL Nucleated RBC % 0.0 /100WBC Sodium 137 (135-145) mmol/L Potassium 2.9 L (3.5-5.0) mmol/L Chloride 105 (101-111) mmol/L Carbon Dioxide 25 (21-32) mmol/L Anion Gap 7.0 (6-13) BUN 7 (6-20) mg/dL Creatinine 0.4 (0.4-1.0) mg/dL Estimated GFR (MDRD) 163 (>89) Glucose 121 H (70-100) mg/dL Calcium 8.3 L (8.5-10.3) mg/dL Total Bilirubin 0.6 (0.2-1.0) mg/dL AST 15 (10-42) IU/L ALT 14 (10-60) IU/L Alkaline Phosphatase 39 L (42-121) IU/L C-Reactive Protein 6.1 H (0-1.0) mg/dL Total Protein 5.4 L (6.7-8.2) g/dL Albumin 2.7 L (3.2-5.5) g/dL Globulin 2.7 (2.1-4.2) g/dL Albumin/Globulin Ratio 1.0 (1.0-2.2) - Current Medications Current Medications: Current Medications Generic Name Dose Route Start Last Admin Trade Name Freq PRN Reason Stop Dose Admin Acetaminophen 650 mg 01/14/20 00:19 01/14/20 14:39 Tylenol PO 650 mg Q4HR PRN Administration Pain 1 to 4 Enoxaparin Sodium 40 mg 01/16/20 09:00 01/18/20 10:04 Lovenox SUBQ Not Given DAILY JULIA Metronidazole 500 mg in 100 mls @ 100 mls/hr 01/14/20 19:00 01/18/20 10:15 Flagyl 500 Mg/100 Ml IV Infused Q8H JULIA Infusion Levofloxacin 750 mg in 150 mls @ 100 mls/hr 01/14/20 20:00 01/17/20 22:00 Levaquin 750 Mg/150 Ml IV Infused Q24H JULIA Infusion Dextrose/Sodium Chloride 1,000 mls @ 75 mls/hr 01/16/20 10:40 01/18/20 10:03 D5ns IV 75 mls/hr .[id number] JULIA Administration Ondansetron HCl 4 mg 01/14/20 00:19 01/17/20 16:02 Zofran Inj IVP 4 mg Q6HR PRN Administration Nausea / Vomiting Ondansetron HCl 4 mg 01/14/20 00:19 01/18/20 01:23 Zofran Odt TL 4 mg Q6HR PRN Administration Nausea / Vomiting Oxycodone HCl 5 mg 01/14/20 00:19 01/18/20 01:26 Roxicodone PO 5 mg Q4HR PRN Administration Pain 5 to 7 Prochlorperazine Edisylate 10 mg 01/14/20 18:23 01/17/20 20:24 Compazine Inj IVP 10 mg Q6HR PRN Administration Nausea / Vomiting Sodium Chloride 10 ml 01/14/20 00:19 01/14/20 18:29 Normal Saline Flush 0.9% IVP 10 ml PRN PRN Administration NEEDED PER PROVIDER ORDERS Sodium Chloride 10 ml 01/14/20 01:00 01/18/20 10:04 Normal Saline Flush 0.9% IVP Not Given 0100,0900,1700 JULIA - Physical Exam General Appearance: positive: No acute distress Respiratory: positive: Breath sounds nml Cardiovascular: positive: Regular rate & rhythm Abdomen: positive: Other (soft minimal tendereness of the LLQ with deep palpation no R/G/R BS present) Skin: positive: No rash Neurologic/Psychiatric: positive: Oriented x3 Impression/Plan - Problem List Problem List: Diverticulitis with mirco perforation Responded well to non-surgical management. Ok to transition to soft low fiber diet, will remain on this for 6 weeks. OK to transition to PO abx as well. From a surgical standpoint if the pateint tolerates soft and oral abx she is ok to discharge on total of 14 days of abx and with follow up outpatient in the surgical office in 2-3 weeks. She was provided signs and symptoms that she should watch for that would warrant earlier follow up or return to emergency care.
--- NOTE | 2020-01-18 12:19 | PROVIDER PROGRESS NOTE ---
Assessment/Plan - Problem List (1) Diverticulitis Assessment/Plan: As per the recommendations of Gen Surgery: will advance diet, change to po antibx todday. Will also stop iv fluids, increase activity. If she tolerates that, poss [facility] tomorrow. Plan for 14 day of antibx total, soft low fiber diet for weeks, and surgey outpt F/U in weeks. (2) E-coli UTI Assessment/Plan: Levoflox to be dosed orally starting today. (3) Abnormal CXR Assessment/Plan: Atelectasis vs PNA was seen and she had a fever, therefore COVID was tested. Results are still pending. Will add IS to use tid. (4) Hypokalemia Assessment/Plan: Replace, and follow daily BMP. (5) Anemia Qualifiers: Anemia type: iron deficiency Assessment/Plan: Will start Iron replacement orally (6) Hypersomnolence Assessment/Plan: Resolved by stopping [employer] pump yesterday. - Current Meds Current Meds: Current Medications Generic Name Dose Route Start Last Admin Trade Name Freq PRN Reason Stop Dose Admin Acetaminophen 650 mg 01/14/20 00:19 01/14/20 14:39 Tylenol PO 650 mg Q4HR PRN Administration Pain 1 to 4 Enoxaparin Sodium 40 mg 01/16/20 09:00 01/18/20 10:04 Lovenox SUBQ Not Given DAILY JULIA Ondansetron HCl 4 mg 01/14/20 00:19 01/17/20 16:02 Zofran Inj IVP 4 mg Q6HR PRN Administration Nausea / Vomiting Ondansetron HCl 4 mg 01/14/20 00:19 01/18/20 01:23 Zofran Odt TL 4 mg Q6HR PRN Administration Nausea / Vomiting Oxycodone HCl 5 mg 01/14/20 00:19 01/18/20 01:26 Roxicodone PO 5 mg Q4HR PRN Administration Pain 5 to 7 Sodium Chloride 10 ml 01/14/20 00:19 01/14/20 18:29 Normal Saline Flush 0.9% IVP 10 ml PRN PRN Administration NEEDED PER PROVIDER ORDERS - Lab Result Fish Bone Diagrams: 01/18/20 04:45 01/18/20 04:45 - Additional Planning My Orders: My Active Orders 01/17/20 11:25 Miscellaenous Nursing Order [RC] QSHIFT 01/17/20 12:00 HYDROmorphone (VIAL) [Dilaudid (Vial)] 2 mg IVP Q6H PRN 01/18/20 Evaluate and Treat PT [PT] Routine 01/18/20 10:34 IS [Incentive Spirometry - RT] [RC] TID 01/18/20 12:13 levoFLOXacin [Levaquin] 750 mg PO DAILY 01/18/20 22:00 metroNIDAZOLE [Flagyl] 500 mg PO Q8H 01/19/20 05:00 BMP - BASIC METABOLIC PANEL [CHEM] DAILYLAB MAGNESIUM [CHEM] DAILYLAB 01/19/20 08:00 Potassium Chloride [K-Dur] 20 meq PO DAILYWM Subjective - Subjective Patient Reports: Feeling Better, Other (Is tolerating OOB sharda chair and walks to BR) Objective Vital Signs: Vital Signs - 24 hr 01/17/20 01/17/20 01/18/20 16:12 23:45 08:23 Temperature 37.2 C 37.3 C 36.9 C Heart Rate [ 76 76 76 Brachial] Respiratory 20 16 16 Rate Blood Pressure 140/82 H 120/72 129/86 H [Right Brachial artery] O2 Saturation 95 93 94 Oxygen O2 Source Room air I&O (Last 24 Hrs): Intake and Output Totals x24h 01/16/20 01/17/20 01/18/20 23:59 23:59 23:59 Intake Total 2960.000 2674.226 2928 Output Total 450 980 Balance 2510.000 658.438 5838 General: Alert HEENT: Mucous membr. moist/pink Neck: Supple Cardiovascular: Regular rate Respiratory: No respiratory distress Extremities: No edema - Results Results: Laboratory Results WBC 5.6 x10^3/uL (4.8-10.8) 01/18/20 04:45 RBC 3.36 10^6/uL (4.20-5.40) L 01/18/20 04:45 Hgb 10.1 g/dL (12.0-16.0) L 01/18/20 04:45 Hct 30.4 % (37.0-47.0) L 01/18/20 04:45 MCV 90.5 fL (81.0-99.0) 01/18/20 04:45 MCH 30.1 pg (27.0-31.0) 01/18/20 04:45 MCHC 33.2 g/dL (32.0-36.0) 01/18/20 04:45 RDW 12.8 % (12.0-15.0) 01/18/20 04:45 Plt Count 274 10^3/uL (130-450) 01/18/20 04:45 MPV 9.1 fL (7.9-10.8) 01/18/20 04:45 Neut # (Auto) 3.8 10^3/uL (1.5-6.6) 01/18/20 04:45 Lymph # (Auto) 1.0 10^3/uL (1.5-3.5) L 01/18/20 04:45 [place] # (Auto) 0.6 10^3/uL (0.0-1.0) 01/18/20 04:45 Eos # (Auto) 0.1 10^3/uL (0.0-0.7) 01/18/20 04:45 Baso # (Auto) 0.0 10^3/uL (0.0-0.1) 01/18/20 04:45 Absolute Nucleated RBC 0.00 x10^3/uL 01/18/20 04:45 Total Counted 100 01/14/20 04:25 Band Neuts % (Manual) 7 % (0-10) 01/14/20 04:25 Abnorm Lymph % (Manual) 0 % 01/14/20 04:25 Nucleated RBC % 0.0 /100WBC 01/18/20 04:45 Neutrophils # (Manual) 10.1 10^3/uL (1.5-6.6) H 01/14/20 04:25 Lymphocytes # (Manual) 0.6 10^3/uL (1.5-3.5) L 01/14/20 04:25 Monocytes # (Manual) 0.4 10^3/uL (0.0-1.0) 01/14/20 04:25 Eosinophils # (Manual) 0.0 10^3/uL (0-0.7) 01/14/20 04:25 Basophils # (Manual) 0.0 10^3/uL (0-0.1) 01/14/20 04:25 Differential Comment MANUAL DIFFERENTIAL 01/14/20 04:25 Platelet Estimate NORMAL (130-450,000) (NORMAL) 01/14/20 04:25 RBC Morph Micro Appear NORMAL APPEARANCE (NORMAL) 01/14/20 04:25 PT 19.1 secs (9.9-12.6) H 01/14/20 17:45 INR 1.7 (0.8-1.2) H 01/14/20 17:45 Sodium 137 mmol/L (135-145) 01/18/20 04:45 Potassium 2.9 mmol/L (3.5-5.0) L 01/18/20 04:45 Chloride 105 mmol/L (101-111) 01/18/20 04:45 Carbon Dioxide 25 mmol/L (21-32) 01/18/20 04:45 Anion Gap 7.0 (6-13) 01/18/20 04:45 BUN 7 mg/dL (6-20) 01/18/20 04:45 Creatinine 0.4 mg/dL (0.4-1.0) 01/18/20 04:45 Estimated GFR (MDRD) 163 (>89) 01/18/20 04:45 Glucose 121 mg/dL (70-100) H 01/18/20 04:45 POC Whole Bld Glucose 102 mg/dL (70 - 100) H 01/14/20 11:10 Glycated Hemoglobin 5.5 % (4.6-6.2) 01/14/20 04:25 Estim Average Glucose 111 (70-100) H 01/14/20 04:25 Lactic Acid 0.8 mmol/L (0.5-2.2) 01/14/20 08:30 Calcium 8.3 mg/dL (8.5-10.3) L 01/18/20 04:45 Magnesium 1.9 mg/dL (1.7-2.8) 01/15/20 04:50 Total Bilirubin 0.6 mg/dL (0.2-1.0) 01/18/20 04:45 AST 15 IU/L (10-42) 01/18/20 04:45 ALT 14 IU/L (10-60) 01/18/20 04:45 Alkaline Phosphatase 39 IU/L (42-121) L 01/18/20 04:45 C-Reactive Protein 6.1 mg/dL (0-1.0) H 01/18/20 04:45 Total Protein 5.4 g/dL (6.7-8.2) L 01/18/20 04:45 Albumin 2.7 g/dL (3.2-5.5) L 01/18/20 04:45 Globulin 2.7 g/dL (2.1-4.2) 01/18/20 04:45 Albumin/Globulin Ratio 1.0 (1.0-2.2) 01/18/20 04:45 Lipase 21 U/L (22-51) L 01/13/20 22:02 CA 125 Antigen 19.3 U/mL (0.0-35.0) 01/14/20 08:30 Urine Color YELLOW 01/13/20 22:09 Urine Clarity HAZY (CLEAR) 01/13/20 22:09 Urine pH 6.0 PH (5.0-7.5) 01/13/20 22:09 Ur Specific [place] 1.025 (1.002-1.030) 01/13/20 22:09 Urine Protein 30 mg/dL (NEGATIVE) H 01/13/20 22:09 Urine Glucose (UA) NEGATIVE mg/dL (NEGATIVE) 01/13/20 22:09 Urine Ketones 40 mg/dL (NEGATIVE) H 01/13/20 22:09 Urine Occult Blood SMALL (NEGATIVE) H 01/13/20 22:09 Urine Nitrite POSITIVE (NEGATIVE) H 01/13/20 22:09 Urine Bilirubin NEGATIVE (NEGATIVE) 01/13/20 22:09 Urine Urobilinogen 0.2 (NORMAL) E.U./dL (NORMAL) 01/13/20 22:09 Ur Leukocyte Esterase SMALL (NEGATIVE) H 01/13/20 22:09 Urine RBC 0-5 /HPF (0-5) 01/13/20 22:09 Urine WBC 11-25 /HPF (0-5) H 01/13/20 22:09 Ur Squamous Epith Cells RARE Squamous (<= Few) 01/13/20 22:09 Urine Bacteria Moderate /HPF (None Seen) H 01/13/20 22:09 Urine Casts 0-2 Hyaline Casts /LPF 01/13/20 22:09 Ur Microscopic Review INDICATED 01/13/20 22:09 Urine Culture Comments INDICATED 01/13/20 22:09 Blood Type A POSITIVE 01/14/20 21:19 Blood Type Recheck A POSITIVE 01/14/20 04:25 Antibody Screen NEGATIVE 01/14/20 21:19 Sepsis Event Note (H) - Sepsis Criteria Sepsis Criteria: Recorded Heart Rate greater than 90 bpm, WBC count greater than 12,000 or less than 4000
[2020-01-18 12:52] LABS: MAGNESIUM 1.7 mg/dL (1.7-2.8)
[2020-01-18] MEDS: levoFLOXacin 250 MG TABLET PO SCH (13:15)
[2020-01-18] MEDS: metroNIDAZOLE 250 MG TABLET PO SCH (22:45)
[2020-01-18] MEDS: ACETAMINOPHEN 325 MG TABLET PO PRN (23:54)
[2020-01-19] MEDS: metroNIDAZOLE 250 MG TABLET PO SCH (05:39)
[2020-01-19 05:41] LABS: BASOPHILS % (AUTO) 0.3 %; EOSINOPHILS # (AUTO) 0.1 10^3/uL (0.0-0.7); EOSINOPHILS % (AUTO) 1.5 %; HGB - HEMOGLOBIN 10.4 g/dL (12.0-16.0); LYMPHOCYTES # (AUTO) 1.5 10^3/uL (1.5-3.5); LYMPHOCYTES % (AUTO) 23.2 %; MEAN CORPUSCULAR HEMOGLOBIN 30.2 pg (27.0-31.0); MEAN PLATELET VOLUME 8.9 fL (7.9-10.8); MONOCYTES # (AUTO) 0.7 10^3/uL (0.0-1.0); MONOCYTES % (AUTO) 11.4 %; NEUTROPHILS % (AUTO) 62.5 %; PLT - PLATELET COUNT 309 10^3/uL (130-450); RED BLOOD COUNT 3.44 10^6/uL (4.20-5.40); RED CELL DISTRIBUTION WIDTH 12.7 % (12.0-15.0); WHITE BLOOD COUNT 6.5 x10^3/uL (4.8-10.8)
[2020-01-19] MEDS: ONDANSETRON ODT 4 MG TABLET TL PRN (05:42)
[2020-01-19] MEDS: oxyCODONE 5 MG TABLET PO PRN (05:42)
[2020-01-19 06:15] LABS: ALBUMIN 3.1 g/dL (3.2-5.5); ALBUMIN/GLOBULIN RATIO 1.1 (1.0-2.2); BILIRUBIN,TOTAL 0.6 mg/dL (0.2-1.0); CALCIUM 9.1 mg/dL (8.5-10.3); CREATININE 0.5 mg/dL (0.4-1.0); CRP - C-REACTIVE PROTEIN 3.9 mg/dL (0-1.0); MAGNESIUM 1.8 mg/dL (1.7-2.8)
[2020-01-19] MEDS ORDERED: POTASSIUM CHLORIDE 20 MEQ TABLET PO SCH (08:00)
[2020-01-19] MEDS ORDERED: FERROUS GLUCONATE 324 MG TABLET PO SCH (08:00)
[2020-01-19] MEDS: levoFLOXacin 250 MG TABLET PO SCH (08:24)
[2020-01-19] MEDS: ENOXAPARIN 40 MG/0.4 ML SYRINGE SUBQ SCH (08:25)
[2020-01-19] MEDS ORDERED: levoFLOXacin 250 MG TABLET PO SCH (09:00)
--- NOTE | 2020-01-19 10:26 | PROVIDER PROGRESS NOTE ---
Subjective - General Admit Date: 01/14/20 - Review of Systems General: positive: No symptoms Pulmonary: positive: Cough (minimal and improved) Gastrointestinal: positive: Abdominal pain (minimal, tolerating soft diet and having lots of gas and passing stools without issue) Psychiatric: positive: Anxiety All Other Systems: positive: Reviewed and negative Objective - Patient Data Vital Signs: Vital Signs x48h Temp Pulse Resp BP Pulse Ox 01/19/20 07:55 37.2 C 71 18 129/75 94 Intake & Output: Intake and Output Totals x24h 01/17/20 01/18/20 01/19/20 23:59 23:59 23:59 Intake Total 7597.832 0955 240 Output Total 980 Balance 574.850 7316 240 - Lab Results Lab Results: 01/19/20 05:27 01/19/20 05:27 Other Lab Results: Lab Results x24hrs 01/19/20 01/19/20 01/18/20 Range/Units 05:27 05:27 04:45 WBC 6.5 (4.8-10.8) x10^3/uL RBC 3.44 L (4.20-5.40) 10^6/uL Hgb 10.4 L (12.0-16.0) g/dL Hct 30.6 L (37.0-47.0) % MCV 89.0 (81.0-99.0) fL MCH 30.2 (27.0-31.0) pg MCHC 34.0 (32.0-36.0) g/dL RDW 12.7 (12.0-15.0) % Plt Count 309 (130-450) 10^3/uL MPV 8.9 (7.9-10.8) fL Neut # (Auto) 4.0 (1.5-6.6) 10^3/uL Lymph # (Auto) 1.5 (1.5-3.5) 10^3/uL [place] # (Auto) 0.7 (0.0-1.0) 10^3/uL Eos # (Auto) 0.1 (0.0-0.7) 10^3/uL Baso # (Auto) 0.0 (0.0-0.1) 10^3/uL Absolute Nucleated RBC 0.00 x10^3/uL Nucleated RBC % 0.0 /100WBC Sodium 139 (135-145) mmol/L Potassium 3.8 (3.5-5.0) mmol/L Chloride 106 (101-111) mmol/L Carbon Dioxide 24 (21-32) mmol/L Anion Gap 9.0 (6-13) BUN 6 (6-20) mg/dL Creatinine 0.5 (0.4-1.0) mg/dL Estimated GFR (MDRD) 126 (>89) Glucose 96 (70-100) mg/dL Calcium 9.1 (8.5-10.3) mg/dL Magnesium 1.8 (1.7-2.8) mg/dL Iron (28-170) ug/dL TIBC (250-450) ug/dL % Saturation (20-50) % Transferrin (192-382) mg/dL Total Bilirubin 0.6 (0.2-1.0) mg/dL AST 32 (10-42) IU/L ALT 21 (10-60) IU/L Alkaline Phosphatase 43 (42-121) IU/L C-Reactive Protein 3.9 H (0-1.0) mg/dL Total Protein 6.0 L (6.7-8.2) g/dL Albumin 3.1 L (3.2-5.5) g/dL Globulin 2.9 (2.1-4.2) g/dL Albumin/Globulin Ratio 1.1 (1.0-2.2) Vitamin B12 523 (180-914) pg/mL Folate 25.00 (5.90 - >24.8) ng/mL 01/18/20 Range/Units 04:45 WBC (4.8-10.8) x10^3/uL RBC (4.20-5.40) 10^6/uL Hgb (12.0-16.0) g/dL Hct (37.0-47.0) % MCV (81.0-99.0) fL MCH (27.0-31.0) pg MCHC (32.0-36.0) g/dL RDW (12.0-15.0) % Plt Count (130-450) 10^3/uL MPV (7.9-10.8) fL Neut # (Auto) (1.5-6.6) 10^3/uL Lymph # (Auto) (1.5-3.5) 10^3/uL [place] # (Auto) (0.0-1.0) 10^3/uL Eos # (Auto) (0.0-0.7) 10^3/uL Baso # (Auto) (0.0-0.1) 10^3/uL Absolute Nucleated RBC x10^3/uL Nucleated RBC % /100WBC Sodium (135-145) mmol/L Potassium (3.5-5.0) mmol/L Chloride (101-111) mmol/L Carbon Dioxide (21-32) mmol/L Anion Gap (6-13) BUN (6-20) mg/dL Creatinine (0.4-1.0) mg/dL Estimated GFR (MDRD) (>89) Glucose (70-100) mg/dL Calcium (8.5-10.3) mg/dL Magnesium 1.7 (1.7-2.8) mg/dL Iron 33 (28-170) ug/dL TIBC 195 L (250-450) ug/dL % Saturation 17 L (20-50) % Transferrin 139 L (192-382) mg/dL Total Bilirubin (0.2-1.0) mg/dL AST (10-42) IU/L ALT (10-60) IU/L Alkaline Phosphatase (42-121) IU/L C-Reactive Protein (0-1.0) mg/dL Total Protein (6.7-8.2) g/dL Albumin (3.2-5.5) g/dL Globulin (2.1-4.2) g/dL Albumin/Globulin Ratio (1.0-2.2) Vitamin B12 (180-914) pg/mL Folate (5.90 - >24.8) ng/mL - Current Medications Current Medications: Current Medications Generic Name Dose Route Start Last Admin Trade Name Freq PRN Reason Stop Dose Admin Acetaminophen 650 mg 01/14/20 00:19 01/18/20 23:54 Tylenol PO 650 mg Q4HR PRN Administration Pain 1 to 4 Enoxaparin Sodium 40 mg 01/16/20 09:00 01/19/20 08:25 Lovenox SUBQ 40 mg DAILY JULIA Administration Ferrous Gluconate 324 mg 01/19/20 08:00 01/19/20 08:24 Fergon PO 324 mg DAILYWM JULIA Administration Levofloxacin 750 mg 01/18/20 12:13 01/19/20 08:24 Levaquin PO 750 mg DAILY JULIA Administration Metronidazole 500 mg 01/18/20 22:00 01/19/20 05:39 Flagyl PO 500 mg Q8H JULIA Administration Ondansetron HCl 4 mg 01/14/20 00:19 01/17/20 16:02 Zofran Inj IVP 4 mg Q6HR PRN Administration Nausea / Vomiting Ondansetron HCl 4 mg 01/14/20 00:19 01/19/20 05:42 Zofran Odt TL 4 mg Q6HR PRN Administration Nausea / Vomiting Oxycodone HCl 5 mg 01/14/20 00:19 01/19/20 05:42 Roxicodone PO 5 mg Q4HR PRN Administration Pain 5 to 7 Potassium Chloride 20 meq 01/19/20 08:00 01/19/20 08:23 K-Dur PO 01/21/20 00:00 20 meq DAILYWM JULIA Administration Sodium Chloride 10 ml 01/14/20 00:19 01/14/20 18:29 Normal Saline Flush 0.9% IVP 10 ml PRN PRN Administration NEEDED PER PROVIDER ORDERS - Physical Exam General Appearance: positive: No acute distress Respiratory: positive: Breath sounds nml Cardiovascular: positive: Regular rate & rhythm Abdomen: positive: Non-tender, Nml bowel sounds, No distention Extremities: positive: Full ROM, Nml appearance Neurologic/Psychiatric: positive: Oriented x3 Impression/Plan - Problem List Problem List: Diverticulitis with microperforation. Responded to conservative therapy. Soft low-fiber diet for 6 weeks upon discharge and follow up in clinic in 2-3 weeks (might be via telemedicine). INstructions and education provided to the patient.
--- NOTE | 2020-01-19 10:55 | Discharge Plan ---
Discharge Plan Problem Reviewed?: Yes Disposition: Home, Self Care Condition: Stable Prescriptions: Ferrous Gluconate 240 mg PO DAILY #30 tablet Lactobacillus Acidophilus [Acidophilus] 1 each PO DAILY #8 capsule levoFLOXacin [Levaquin] 750 mg PO DAILY #8 tablet metroNIDAZOLE [Flagyl] 500 mg PO TID #24 tablet oxyCODONE [Roxicodone] 5 mg PO TID #8 tablet Potassium Chloride [K-Dur] 20 meq PO DAILYWM #5 tablet Diet: Soft (Low fiber, soft diet for 6 weeks) Activity Restrictions: Activity as Tolerated Shower Restrictions: No Driving Restrictions: No Instruction Topics: Diverticulitis Dc, Urinary Tract Infec , COVID-19 [facility], COVID-19 [facility] Department Statement Health Concerns: You were admitted with diverticulitis which had a micro-perforation. The management was nonsurgical. There has been significant improvement so you are being discharged with instructions to take 8 more days of antibiotics, also probiotics and several tablets of codeine pain medications. You also were found to be very anemic, with iron deficiency, and you are being prescribed new iron replacement therapy. All new prescriptions were electronically sent to your [facility] pharmacy in [place]. You need to follow the General Surgeon's orders regarding further management: E at a soft diet for 6 weeks total, follow-up in the general surgery clinic/doctor's office in 2 to 3 weeks. Call [phone] for an appointment. Stay well-hydrated. If you have new or worsening symptoms, call your PCP or the general surgery clinic for advice or come to the ER. Plan of Treatment: As above. Care Goals: Improvement in symptoms and stabilization are the goals. Assessment: Patient understands and is agreeable with the plan. No Smoking: If you smoke, Please STOP! Call for help. Follow-up with: Paula Thurston MD [Provider Admit Priv/Credential] -
--- NOTE | 2020-01-19 11:02 | DISCHARGE SUMMARY ---
"Discharge Summary Admit Date: 01/14/20 Discharge Date: 01/19/20 Discharging Provider: Dr Any Parry Primary Care Provider: No PCP listed Code Status: Attempt Resuscitation Condition at Discharge: Stable Discharge Disposition: 01 Home, Self Care - [facility] History of Present Illness: From the admission H&P of Dr Xiomara Tovar: A 59-year-old female who presented to the emergency room with pain across her lower abdomen that was centralized and radiating up both sides. It had been present for 4 days and associated with no appetite and no intake today. She has had decreased p.o. intake over the last several days. She denies fever but has had some chills. No change in bowel habits. There is been no urgency, frequency, dysuria. She was seen in the emergency room her temperature was 37.4, heart rate 118 and respirations 16. Blood pressure 114/74 and O2 sat 99% on room air. She received 1 L of IV fluids. Pulse stayed 102. Initially she was thought to have a urinary tract infection with positive nitrites, small amount of Leukocyte Esterase, 11-25 white cells, with moderate bacteria. She does have rare squamous cells. On examination, however, the emergency room physician felt she had more left lower quadrant pain and warranted a CT of the abdomen, which was done. CT scan of the abdomen showed: scattered atelectasis at the lower cuts of the lungs. Diffuse steatosis. Severe sigmoid diverticulitis with inflammation of the adjacent small bowel. Mid to lower small bowel mildly dilated with air- fluid levels. She has a 7 cm right ovarian postmenopausal cyst. Because of the reduced p.o. intake, and tachycardia, the patient is felt to be at risk without intravenous therapy now. As such she was placed in Observation to see if she responds to IV antibiotics and is able to improve her p.o. intake. - CONSULTS | PROCEDURES Consultations: Dr Paula Thurston, Gen Surgery - HOSPITAL COURSE Hospital Course: (1) Diverticulitis with (micro)perforation By the second day she wanted to try a diet which she vomited up, and her exam showed new guarding. She underwent another CT scan of the abdomen and this showed a microperforation. General Surgery was called on consult. Dr Paula Thurston advised medical management or she would need a colostomy. Conservative measures of bowel rest, iv anti-emetics, pain meds (ORTHOPAEDIC DOCTOR pump temporarily used) and iv antibiotics Flagyl and Levoflox worked. She was discharged home to finish 8 more days of those same antibiotics orally with probiotics, and to remain on a soft, low fiber diet for 4-6 weeks and to see General Surgery clinic in several weeks. (2) E-coli UTI Her empiric iv antibiotics covered the bacteriuria and Levoflox was dosed orally at discharge. (3) Abnormal CXR Atelectasis vs pneumonia was seen on the fist CT and she had a fever, therefore COVID was tested. We added Incentive Spirometry to use t.i.d. Results of COVID testing were still pending at discharge. She was provided isolation instructions at discharge. (4) Hypokalemia Replaced, and followed BMP daily. (5) Anemia, iron deficiency She was admitted with a Hgb of 12.9 which dropped to the 9.5-10 range. She did require alot of iv fluids and was 8 L (+) in fluid balance but labs were checked and she was iron deficient, and was therefore started on Iron replacement orally. - ALLERGIES Allergies/Adverse Reactions: Allergies Allergy/AdvReac Type Severity Reaction Status Date / Time No Known Drug Allergies Allergy Verified 01/13/20 21:49 - MEDICATIONS Home Medications: Ambulatory Orders Medication Instructions Recorded Confirmed Ferrous Gluconate 240 mg PO DAILY #30 tablet 01/19/20 Lactobacillus Acidophilus 1 each PO DAILY #8 capsule 01/19/20 [Acidophilus] Potassium Chloride [K-Dur] 20 meq PO DAILYWM #5 tablet 01/19/20 levoFLOXacin [Levaquin] 750 mg PO DAILY #8 tablet 01/19/20 metroNIDAZOLE [Flagyl] 500 mg PO TID #24 tablet 01/19/20 oxyCODONE [Roxicodone] 5 mg PO TID #8 tablet 01/19/20 Docusate Sodium 100 mg PO DAILY #20 capsule 01/25/20 Ibuprofen [Motrin] 600 mg PO TID PRN #20 tab 01/25/20 Ondansetron Odt [Zofran] 4 mg TL Q6H PRN #10 tablet 01/25/20 Oxycodone HCl/Acetaminophen 1 each PO Q6H PRN #25 tablet 01/25/20 [Percocet 5-325 mg Tablet] - PHYSICAL EXAM AT DISCHARGE General Appearance: positive: No acute distress, Alert Eyes Bilateral: positive: Normal inspection, EOMI ENT: positive: ENT inspection nml, No signs of dehydration Neck: positive: Nml inspection Respiratory: positive: No respiratory distress Cardiovascular: positive: Regular rate & rhythm Abdomen: positive: Non-tender, No distention Extremities: positive: No pedal edema Neurologic/Psychiatric: positive: Oriented x3, Other (Non-focal) - LABS Result Diagrams: 01/19/20 05:27 01/19/20 05:27 - FOLLOW UP Follow Up: Establish with a PCP. See General Surgery clinic provider in 10-14 days. - TIME SPENT Time Spent in Discharge (Minutes): 60"
[2020-01-19 13:36] VITALS: BP 107/74
== END 2020-01-19 13:05 | disposition home or self-care (01) | DRG 391 ==
LOC: ED 21:45 → MS2 01-14 00:19 → OBSVTOIN 01-14 19:19
PROVIDERS: ADMIT Specialist; ATTEND Internal Medicine
DX: K57.20 Diverticulitis of large intestine with perforation and abscess without bleeding (principal); J18.9 Pneumonia, unspecified organism; J98.11 Atelectasis; N30.00 Acute cystitis without hematuria; K56.7 Ileus, unspecified; B96.20 Unspecified Escherichia coli [E. coli] as the cause of diseases classified elsewhere; E87.6 Hypokalemia; D50.9 Iron deficiency anemia, unspecified; R73.9 Hyperglycemia, unspecified; K76.0 Fatty (change of) liver, not elsewhere classified; N83.201 Unspecified ovarian cyst, right side; R09.02 Hypoxemia; G47.10 Hypersomnia, unspecified; Y92.230 Patient room in hospital as the place of occurrence of the external cause; T40.605A Adverse effect of unspecified narcotics, initial encounter
CPT/HCPCS: 36415; 71045; 74177; 80048; 80053; 81001; 82607; 82746; 83036; 83540; 83605; 83690; 83735; 84466; 85025; 85610; 86140; 86304; 86850; 86900; 86901; 87040; 87086; 87181; 87635; 93005; 93306; 96361; 96365; 96366; 96367; 96375; 96376; 97161; 99284; 99285; A9270; G0378; J1650; J7120; Q0162; Q9967; 81003

== ENCOUNTER 2020-01-25 11:57 | Emergency (ER) | payer OTHER ==
--- NOTE | 2020-01-25 12:06 | ED Physician Documentation ---
PD HPI ABD PAIN - Stated complaint Stated Complaint: R SIDE PAIN - History obtained from History obtained from: Patient - History of Present Illness Timing - onset: How many days ago (2) Timing - duration: Days (2) Timing - details: Gradual onset (The patient is having right-sided abdominal pain. She was recently hospitalized for diverticulitis with pain in the lower abdomen and left side. She states that has continued to improve which is some mild tenderness still. She is still on her antibiotics. She was released 5 days ago and 2 days ago started with some pain in the right flank to right abdomen. She has some tenderness to palpation in the abdomen and does have pain with movement but also some pain with deep breathing. The pain has worsened over the couple of days despite home medication use of pain pills she had been prescribed for her diverticulitis. She has not had any cough or cold symptoms. She denies any fevers rash or sores.) Quality: Aching, Sharp, Pain Location: RLQ Radiation: Right flank Improved by: No: Eating, Laying still Worsened by: Moving, Breathing, Palpation. No: Eating Associated symptoms: Nausea. No: Fever, Vomiting, Diarrhea, Constipation, Dysuria, Hematuria Similar symptoms before: Has not had sx before Recently seen: Emergency Dept, Admitted (Recently admitted for diverticulitis with a microperforation and was hospitalized from January 12- and is in improving condition at discharge and her lower abdominal pain is continue to improve outpatient.) Review of Systems Constitutional: denies: Fever, Chills, Myalgias Nose: denies: Rhinorrhea / runny nose, Congestion Throat: denies: Sore throat Cardiac: denies: Chest pain / pressure, Palpitations, Pedal edema, Calf pain Respiratory: denies: Dyspnea, Cough, Hemoptysis GI: reports: Abdominal Pain, Nausea. denies: Vomiting, Constipation, Diarrhea : denies: Dysuria, Frequency Skin: denies: Rash, Lesions Musculoskeletal: reports: Back pain. denies: Neck pain, Extremity swelling Neurologic: denies: Generalized weakness Endocrine: reports: Weight loss (3 lbs in the past week). 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 ([id number]) : None HEENT: None Psych: None Musculoskeletal: None Derm: None - Past Surgical History Past Surgical History: No HEENT: Other - Present Medications Home Medications: Ambulatory Orders Medication Instructions Recorded Confirmed Ferrous Gluconate 240 mg PO DAILY #30 tablet 01/19/20 Lactobacillus Acidophilus 1 each PO DAILY #8 capsule 01/19/20 [Acidophilus] Potassium Chloride [K-Dur] 20 meq PO DAILYWM #5 tablet 01/19/20 levoFLOXacin [Levaquin] 750 mg PO DAILY #8 tablet 01/19/20 metroNIDAZOLE [Flagyl] 500 mg PO TID #24 tablet 01/19/20 oxyCODONE [Roxicodone] 5 mg PO TID #8 tablet 01/19/20 Docusate Sodium 100 mg PO DAILY #20 capsule 01/25/20 Ibuprofen [Motrin] 600 mg PO TID PRN #20 tab 01/25/20 Ondansetron Odt [Zofran] 4 mg TL Q6H PRN #10 tablet 01/25/20 Oxycodone HCl/Acetaminophen 1 each PO Q6H PRN #25 tablet 01/25/20 [Percocet 5-325 mg Tablet] - Allergies Allergies/Adverse Reactions: Allergies Allergy/AdvReac Type Severity Reaction Status Date / Time No Known Drug Allergies Allergy Verified 01/13/20 21:49 - Social History Does the pt smoke?: No Smoking Status: Former smoker Does the pt drink ETOH?: No Does the pt have substance abuse?: No - Immunizations Immunizations are current?: Yes - POLST Patient has POLST: No POLST Status: Full Code PD ED PE NORMAL - Vitals Vital signs reviewed: Yes - General General: Alert and oriented X 3, Well developed/nourished, Other (appears uncomfortable due to right abd pain) - HEENT HEENT: Moist mucous membranes, Pharynx benign - Neck Neck: Supple, no meningeal sign, No adenopathy - Cardiac Cardiac: RRR, No murmur - Respiratory Respiratory: Clear bilaterally - Abdomen Abdomen: Soft, Non distended, No organomegaly, Other (She has some tenderness in the right mid abdomen to right lower abdomen and tenderness in the right parathoracic soft tissue. There is no rash or sores. No vertebral tenderness. There is no tenderness at the costal margin or ribs. Upper abdomen is nontender and there is negative Sylvester sign.). No: Normal bowel sounds (somewhat diminished) - Female Female : Deferred - Rectal Rectal: Deferred - Back Back: No spinal TTP - Derm Derm: Normal color, Warm and dry, No rash Results - Vitals Vitals: Vital Signs - 24 hr 01/25/20 01/25/20 01/25/20 12:14 12:19 14:34 Temperature 36.0 C L Heart Rate 98 95 76 Respiratory 18 16 18 Rate Blood Pressure 133/91 H 133/74 H 126/73 O2 Saturation 99 99 98 01/25/20 01/25/20 15:10 15:47 Temperature Heart Rate 78 80 Respiratory 16 16 Rate Blood Pressure 133/69 H 128/70 O2 Saturation 100 100 Oxygen O2 Source Room air - Labs Labs: Laboratory Tests 01/25/20 01/25/20 01/25/20 12:00 12:42 12:42 WBC 9.8 RBC 4.19 L Hgb 12.4 Hct 38.1 MCV 90.9 MCH 29.6 MCHC 32.5 RDW 13.1 Plt Count 402 MPV 8.8 Neut # (Auto) 7.5 H Lymph # (Auto) 1.6 [place] # (Auto) 0.6 Eos # (Auto) 0.0 Baso # (Auto) 0.0 Absolute Nucleated RBC 0.00 Nucleated RBC % 0.0 Sodium 136 Potassium 3.5 Chloride 104 Carbon Dioxide 21 Anion Gap 11.0 BUN 13 Creatinine 0.5 Estimated GFR (MDRD) 126 Glucose 113 H Calcium 9.2 Magnesium 2.2 Total Bilirubin 0.5 AST 18 ALT 26 Alkaline Phosphatase 49 Total Protein 7.9 Albumin 4.5 Globulin 3.4 Albumin/Globulin Ratio 1.3 Lipase 94 H Urine Color YELLOW Urine Clarity CLOUDY Urine pH 5.5 Ur Specific [place] >=1.030 H Urine Protein NEGATIVE Urine Glucose (UA) NEGATIVE Urine Ketones NEGATIVE Urine Occult Blood MODERATE H Urine Nitrite NEGATIVE Urine Bilirubin NEGATIVE Urine Urobilinogen 0.2 (NORMAL) Ur Leukocyte Esterase NEGATIVE Urine RBC 6-10 H Urine WBC 0-3 Ur Squamous Epith Cells FEW Squamous Amorphous Sediment Moderate Urine Bacteria Few Ur Microscopic Review INDICATED Urine Culture Comments NOT INDICATED - Rads (name of study) abd CT Radiology: Prelim report reviewed (Resolution of the previous localized area of inflammation that had been concerning for early abscess. No signs of perforation or free fluid. Persistent right adnexal cyst unchanged from previous scan. No kidney stones nor kidney abnormalities. No acute explanation for the right-sided pain.), See rad report PD MEDICAL DECISION MAKING - ED course Complexity details: reviewed results (No acute explanation for the right sided pain. She has tenderness in the lower thoracic right side all of her to the abdomen. There is no skin rash but would be curious about early shingles versus musculoskeletal pain. No obvious acute intra-abdominal process. The previous diverticulitis is resolving and appears good.), considered differential (The patient is having right-sided abdominal pain. She was recently hospitalized for diverticulitis with pain in the lower abdomen and left side. She states that has continued to improve which is some mild tenderness still. She is still on her antibiotics. She was released 5 days ago and 2 days ago started with some pain in the right flank to right abdomen. She has some tenderness to palpation in the abdomen and does have pain with movement but also some pain with deep breathing. The pain has worsened over the couple of days despite home medication use of pain pills she had been prescribed for her diverticulitis. She has not had any cough or cold symptoms. She denies any fevers rash or sores.), d/w patient Departure - Departure Disposition: 01 Home, Self Care Clinical Impression: Right sided abdominal pain Condition: Stable Record reviewed to determine appropriate education?: Yes Instructions: ED Abdominal Pain Unkn Cause Prescriptions: Docusate Sodium 100 mg PO DAILY #20 capsule Ibuprofen [Motrin] 600 mg PO TID PRN #20 tab PRN Reason: Pain Ondansetron Odt [Zofran] 4 mg TL Q6H PRN #10 tablet PRN Reason: Nausea / Vomiting Oxycodone HCl/Acetaminophen [Percocet 5-325 mg Tablet] 1 each PO Q6H PRN #25 tablet PRN Reason: pain Comments: There is no obvious cause of the pain noted on your CT scan or urine test or blood test. The diverticulitis seems to be resolving on the CT scan. Can continue and finish out your current antibiotics. There is comment on your CT scan of some mild shrinkage of the lung on the bases (called atelectasis). This could perhaps give some pain in the lower lung and would be treated with purposeful deep breathing and anti-inflammatories. At this point I would suggest staying well-hydrated and finishing out your antibiotics. Add ibuprofen 3 times a day with food as an anti-inflammatory. Docusate stool softener if you are not already using 1. Add the oxycodone if needed for pain. Recheck if not improved well over the next 2 to 3 days. Otherwise follow-up at that point or return to the ER if worsening pain or not well controlled or other symptoms develop such as fever, trouble breathing, rash or other concerns. Discharge Date/Time: 01/25/20 15:54
[2020-01-25] MEDS ORDERED: SODIUM CHLORIDE 0.9% 1,000 ML IV ONE ×2 (12:27→14:22)
[2020-01-25] MEDS ORDERED: KETOROLAC 30 MG/ML VIAL IVP STA (12:28)
[2020-01-25] MEDS ORDERED: IOVERSOL 320 100 ML VIAL IVP ONE ×2 (12:40→13:34)
[2020-01-25 12:47] LABS: BASOPHILS % (AUTO) 0.3 %; EOSINOPHILS % (AUTO) 0.4 %; HGB - HEMOGLOBIN 12.4 g/dL (12.0-16.0); LYMPHOCYTES # (AUTO) 1.6 10^3/uL (1.5-3.5); LYMPHOCYTES % (AUTO) 15.8 %; MEAN CORPUSCULAR HEMOGLOBIN 29.6 pg (27.0-31.0); MEAN CORPUSCULAR HGB CONC 32.5 g/dL (32.0-36.0); MEAN CORPUSCULAR VOLUME 90.9 fL (81.0-99.0); MEAN PLATELET VOLUME 8.8 fL (7.9-10.8); MONOCYTES # (AUTO) 0.6 10^3/uL (0.0-1.0); MONOCYTES % (AUTO) 6.5 %; NEUTROPHILS # (AUTO) 7.5 10^3/uL (1.5-6.6); NEUTROPHILS % (AUTO) 76.5 %; PLT - PLATELET COUNT 402 10^3/uL (130-450); RED BLOOD COUNT 4.19 10^6/uL (4.20-5.40); RED CELL DISTRIBUTION WIDTH 13.1 % (12.0-15.0); WHITE BLOOD COUNT 9.8 x10^3/uL (4.8-10.8)
[2020-01-25 13:00] LABS: ALBUMIN 4.5 g/dL (3.2-5.5); ALBUMIN/GLOBULIN RATIO 1.3 (1.0-2.2); BILIRUBIN,TOTAL 0.5 mg/dL (0.2-1.0); CALCIUM 9.2 mg/dL (8.5-10.3); CREATININE 0.5 mg/dL (0.4-1.0); MAGNESIUM 2.2 mg/dL (1.7-2.8); TOTAL PROTEIN 7.9 g/dL (6.7-8.2)
[2020-01-25 13:10] LABS: BILIRUBIN,URINE NEGATIVE (NEGATIVE); GLUCOSE, URINE (UA) NEGATIVE (NEGATIVE); KETONES,URINE (UA) NEGATIVE (NEGATIVE); LEUKOCYTE ESTERASE, URINE NEGATIVE (NEGATIVE); NITRITE,URINE NEGATIVE (NEGATIVE); OCCULT BLOOD,URINE MODERATE (NEGATIVE); PH,URINE 5.5 PH (5.0-7.5); PROTEIN,URINE NEGATIVE (NEGATIVE); UROBILINOGEN,URINE 0.2 (NORMAL) E.U./dL (NORMAL)
[2020-01-25 13:13] LABS: CLARITY,URINE CLOUDY (CLEAR)
[2020-01-25 13:25] LABS: BACTERIA,URINE Few /HPF (None Seen); SQUAMOUS EPITHELIAL CELL,UR FEW Squamous (<= Few)
[2020-01-25 13:26] LABS: AMORPHOUS SEDIMENT,UR Moderate /LPF
--- NOTE | 2020-01-25 14:19 | CT Report ---
Reason: persistent LLQ pain; new right abd pain Procedure Date: 01/25/2020 Accession Number: [id number] / [id number] Procedure: CT - Abdomen/Pelvis W CPT Code: Final Report FULL RESULT: EXAM: CT ABDOMEN AND PELVIS EXAM DATE: 01/25/2020 01:33 PM. CLINICAL HISTORY: Persistent LLQ pain; new right abd pain. COMPARISONS: ABDOMEN/PELVIS W/ 01/14/2020 4:04 PM. TECHNIQUE: Routine helical CT imaging was performed through the abdomen and pelvis. IV contrast: 100 cc Optiray 320. Enteric contrast: No. Reconstructions: Coronal and sagittal. In accordance with CT protocol optimization, one or more of the following dose reduction techniques were utilized for this exam: automated exposure control, adjustment of mA and/or KV based on patient size, or use of iterative reconstructive technique. FINDINGS: Lung Bases: Subsegmental basal atelectasis or scarring, decreased on the right. Trace right pleural effusion. Liver: Normal. No masses. Gallbladder/Bile Ducts: Gallbladder is unremarkable. Mild prominence of the common bile duct measuring up to 8 mm at the head of the pancreas, similar to prior. No focal obstructing lesion is evident. Spleen: Normal. Pancreas: Normal. Adrenal Glands: Normal. Kidneys: No hydronephrosis or convincing solid mass. Probable small right renal cortical cyst similar to prior. Peritoneal Cavity/Bowel: No free air or free fluid. No organized fluid collection. Decreased minimal stranding associated with a focally prominent sigmoid diverticulum (5/18). Apparent mild diffuse distal descending and sigmoid colonic wall thickening suggesting nonspecific colitis. Nondistention may contribute to this appearance. Interval resolution of small bowel distention. The previously identified developing abscess is not clearly visualized however lack of enteric contrast makes discrimination from coapted bowel loops challenging. The appendix is well visualized and normal. Pelvic Organs: Multiple uterine fibroids. Urinary bladder minimally distended, grossly unremarkable. Large right adnexal/ovarian cyst measuring up to 72 x 61 mm, previously measured at 77 x 64 mm. Vasculature: No aneurysms or other significant abnormality. Bones: No significant abnormality. Other: None. IMPRESSION: 1. Decreased inflammatory changes associated with prominent sigmoid diverticulum. Apparent mild diffuse distal descending and sigmoid colonic wall thickening suggesting nonspecific colitis. Nondistention may contribute to this appearance. 2. Previously identified developing abscess is not clearly visualized however absence of enteric contrast makes discrimination from coapted bowel loops challenging. 3. Previously identified small bowel distention has resolved. 4. Large right ovarian/adnexal cyst. Follow-up as previously recommended. 5. Nonspecific mild prominence of the common bile duct. 6. Other findings as noted above. RADIA
[2020-01-25] MEDS ORDERED: DOCUSATE SODIUM 100 MG CAPSULE PO STA (14:24)
[2020-01-25] MEDS: HYDROmorphone 1 MG/ML CARPUJECT IVP STA ×2 (14:38→15:53)
[2020-01-25 15:52] VITALS: BP 128/70
== END 2020-01-25 15:54 | disposition home or self-care (01) ==
LOC: ED 11:57
DX: R10.31 Right lower quadrant pain (principal); Z87.891 Personal history of nicotine dependence
CPT/HCPCS: 36415; 74177; 80053; 81001; 83690; 83735; 85025; 96361; 96374; 99284; A9270; Q9967; 81003; 87086

== ENCOUNTER 2020-03-26 18:28 | Outpatient (CLI) | payer OTHER ==
[2020-03-26] MEDS ORDERED: IOVERSOL 320 100 ML VIAL IVP ONE (18:37)
[2020-03-26] MEDS ORDERED: IOVERSOL 320 50 ML VIAL ONE (18:37)
--- NOTE | 2020-03-26 20:59 | CT Report ---
Reason: ABDOMEN PAIN, DIVERTICULITIS Procedure Date: 03/26/2020 Accession Number: [id number] / [id number] Procedure: CT - Abdomen/Pelvis W CPT Code: Final Report FULL RESULT: PROCEDURE: Abdomen/Pelvis W INDICATIONS: ABDOMEN PAIN, DIVERTICULITIS CONTRAST: IV CONTRAST: Optiray 320 ml: 100 PO CONTRAST: Optiray 320 ml50 TECHNIQUE: After the administration of oral and intravenous contrast, 5 mm thick sections acquired from the diaphragms to the symphysis. 5 mm thick coronal and sagittal reformats were acquired. For radiation dose reduction, the following was used: automated exposure control, adjustment of mA and/or kV according to patient size. COMPARISON: CT abdomen and pelvis 01/25/2020, (01/13/2020. FINDINGS: Image quality: Excellent. ABDOMEN: Lung bases: Mild basilar atelectasis. No pleural effusion. Heart size is normal. Solid organs: Liver and spleen are normal in size. Probable hepatic steatosis. Gallbladder is unremarkable. Biliary system is non dilated. Pancreas enhances normally. No adrenal nodules. Kidneys demonstrate normal size and enhancement, without hydronephrosis. Question of bilateral extrarenal pelvises. Peritoneum and bowel: Minimal fluid and stranding in the left lower quadrant at the site of prior diverticulitis, (). Bowel loops demonstrate normal wall thickness and caliber. No free fluid or air. Retrocecal appendix is normal in caliber. Nodes and vessels: No retroperitoneal or mesenteric adenopathy by size criteria. Aorta and inferior vena cava are normal in size. Persistent left IVC, variant. Miscellaneous: No ventral hernias. PELVIS: Genitourinary: Bladder is within normal limits. Large right ovarian cyst measuring 6.8 x 6.7 x 6.7 cm, ( and ), previously 7.1 x 6.8 x 6.6 cm on 01/25/2020. This measured 6.9 cm on 01/13/2020. Miscellaneous: No inguinal hernias or adenopathy. Bones: No suspicious bony lesions. No vertebral body compression fractures. IMPRESSION: 1. Inflammatory change associated with the previously seen sigmoid colon diverticulitis is nearly resolved. No loculated fluid collection to suggest abscess. No free fluid in the pelvis. No new areas of inflammatory change. 2. Large right ovarian cyst measuring up to 6.8 cm is not significantly changed. However, given the size of this lesion pelvic MRI and/or gynecological consultation should be considered on an outpatient basis. 3. Hepatic steatosis. Reviewed by: Rohan Giron MD on 03/26/2020 8:58 PM PDT Approved by: Rohan Giron MD on 03/26/2020 8:58 PM PDT Station ID: [id number]
== END 2020-03-26 18:29 | disposition home or self-care (01) ==
LOC: DI 18:28
PROVIDERS: ATTEND Physician Assistant Medical
DX: N83.201 Unspecified ovarian cyst, right side (principal); K76.0 Fatty (change of) liver, not elsewhere classified
CPT/HCPCS: 74177; Q9967